=== PATIENT | male | born 1950 | race Caucasian/White ===

== ENCOUNTER 2018-09-28 06:24 | Day surgery (SDC) | payer OTHER ==
[2018-09-24 11:23] LABS: Absolute Lymphocytes (CBC) 2.5 K/uL (0.7-4.9); Absolute Monocytes 0.7 K/uL (0.1-1.3); Absolute Neutrophil 5.9 K/uL (1.8-8.0); Basophils % 1.3 % (0-1.3); Eosinophils % 4.6 % (0-4.4); Lymphocytes % 25.7 % (15.3-44.8); MCH 31.3 pg (27.0-35.0); MPV 10.5 fL (7.6-11.3); Monocytes % 7.1 % (3.3-12.3); RBC Red Blood Cell Count 4.84 M/uL (4.33-5.43)
[2018-09-24 11:27] LABS: Protime INR 0.99
[2018-09-24 11:36] LABS: Potassium 4.2 mmol/L (3.5-5.1)
--- NOTE | 2018-09-24 12:51 | RAD REPORT ---
EXAM DESCRIPTION: Amarjit Harvey (2 Views)09/24/2018 11:02 am CLINICAL HISTORY: Coronary artery disease/preop cardiac catheterization COMPARISON: May 2018 FINDINGS: The lungs appear clear of acute infiltrate. The heart is normal size IMPRESSION: No acute abnormalities displayed
[2018-09-28] MEDS ORDERED: HEPA 1000U/500MLS 1,000 UNIT/500 ML BAG IV ONE (06:46)
[2018-09-28] MEDS ORDERED: LIDOCAINE 1% MPF 30 ML VIAL ONE (06:46)
[2018-09-28] MEDS ORDERED: NA CHLORIDE 0.9% 500 ML ONE (06:55)
[2018-09-28] MEDS ORDERED: FENTANYL CITR 100 MCG/2 ML ONE (07:05)
[2018-09-28] MEDS ORDERED: MIDAZOLAM HCL 2 MG/2 ML INJ ONE ×2 (07:05→07:46)
[2018-09-28] MEDS ORDERED: NA CHLORIDE 0.9% 0 ML ONE (07:06)
[2018-09-28] MEDS ORDERED: ATROPINE SULF 1 MG/10 ML SYR IV ONE (07:06)
[2018-09-28] MEDS ORDERED: ACETYLCYST 20% 800 MG/4 ML VIAL PO ONE (08:15)
--- NOTE | 2018-09-28 12:37 | OP ---
Surgeon: Christiano Armstrong MD [employer] Operator: Minda Gill. Admitted to my service as an outpatient for a heart catheterization. Indication: Abnormal stress test. The patient is 67. He is a patient of Dr. Juan M Gay. Had a his tory of hypertension, dyslipidemia, intolerant to statin, positive stress test, brought to the cath l ab as an outpatient. He was prepped and draped in the routine sterile fashion. Given 2 mg of Versed for IV sedation. Creatinine is 1.4. A 6-[place] sheath introduced in the right common femoral arter y. Angiography there showed mild plaquing in the external iliac artery, but no focal stenosis. Loli o-Seal was used to close the case. A 6-[place] catheters of Bryan were used to do the left and righ t coronary injection respectively. He was found to have mild to moderate plaquing in the proximal LA D without any focal stenosis. The circumflex was normal. He was very left dominant. The RCA was fr ee of disease and was small, nondominant. The plan is for medical therapy for mild CAD. Total consc ious sedation was 30 minutes. Complications: None. Blood Loss: 5 cc. Disposition: The patient will be going home today after 2 hours of bedrest, and he will see me in e office in the next 2 weeks. ANTHONY/JOSEFINA Voice ID: [id number] Report ID: [id number]
== END 2018-09-28 10:00 | disposition home health service (06) ==
LOC: CCL 06:24
DX: I25.10 Atherosclerotic heart disease of native coronary artery without angina pectoris (principal); I10 Essential (primary) hypertension; K21.9 Gastro-esophageal reflux disease without esophagitis; F17.210 Nicotine dependence, cigarettes, uncomplicated; Z82.49 Family history of ischemic heart disease and other diseases of the circulatory system
CPT/HCPCS: 36415; 71046; 80048; 85025; 85610; 85730; 93454; C1760; C1893; J2250 ×2; J3010; J0583

== ENCOUNTER 2020-12-12 17:14 | Observation (INO) | payer OTHER ==
--- NOTE | 2020-12-12 17:48 | RAD REPORT ---
EXAM DESCRIPTION: CT - Ct Stroke Brain Wo Cont - 12/12/2020 5:36 pm CLINICAL HISTORY: DIZZINESS Headache, CVA COMPARISON: HEAD BRAIN W O CONTRAST dated 10/10/2011 TECHNIQUE: All CT scans are performed using dose optimization technique as appropriate and may inclu de automated exposure control or mA/KV adjustment according to patient size. FINDINGS: No intracranial hemorrhage, hydrocephalus or extra-axial fluid collection.Small right-side d old lacunar infarcts. 16 mm area of diminished density in the left frontal region of the basal gang dominic could be subacute infarct. No areas of brain edema or evidence of midline shift. The paranasal sinuses and mastoids are clear. The calvarium is intact. IMPRESSION: No acute intracranial abnormality. Possible subacute infarct measuring 16 mm left anter ior basal ganglia. The findings were discussed with Dr. Haynes On 12-12-20 at 5:42 pm by telephone.
--- NOTE | 2020-12-12 17:53 | RAD REPORT ---
EXAM DESCRIPTION: RAD - Chest Single View - 12/12/2020 5:47 pm CLINICAL HISTORY: stroke protocol Chest pain. COMPARISON: Chest Pa And Lat (2 Views) dated 01/24/2020; Chest Pa And Lat (2 Views) dated 09/24/2018; C hest Pa And Lat (2 Views) dated 06/01/2018; CHEST PA AND LAT 2 VIEW dated 08/15/2013 FINDINGS: Portable technique limits examination quality. The lungs are grossly clear. The heart is normal in size. No displaced fractures. IMPRESSION: No acute intrathoracic process suspected.
[2020-12-12 17:56] LABS: Absolute Lymphocytes (CBC) 2.3 K/uL (0.7-4.9); Basophils % 0.8 % (0-1.3); Hematocrit 39.1 % (39.6-49.0); Lymphocytes % 27.2 % (15.3-44.8); MPV 10.2 fL (7.6-11.3); RBC Red Blood Cell Count 4.37 M/uL (4.33-5.43)
[2020-12-12 18:01] LABS: Protime INR 1.03
[2020-12-12 18:07] LABS: BUN Blood Urea Nitrogen 27 mg/dL (7-18); Bicarbonate 28 mmol/L (21-32); Glucose Level 143 mg/dL (74-106); Potassium 3.7 mmol/L (3.5-5.1); Sodium Level 141 mmol/L (136-145); Troponin (Emerg Dept Use Only) < 0.02 ng/mL (0.0-0.045)
[2020-12-12] MEDS ORDERED: ASPIRIN 81 MG CHEWABLE TABLET ONE (18:32)
[2020-12-12] MEDS ORDERED: FOLIC ACID 5 MG/ML VIAL ONE (18:33)
[2020-12-12] MEDS ORDERED: NA CHLORIDE 0.9% 1,000 ML ONE (18:33)
--- NOTE | 2020-12-12 18:58 | ER ---
Nurse's Notes [facility] Name: Latrell Ramires Age: 70 yrs Sex: Male : 1950 Arrival Date: 12/12/2020 Time: 17:15 Bed 17 Private MD: Juan M Gay T Diagnosis: Cerebral infarction Presentation: 12/12 17:26 Chief complaint: Patient states: Slurred speech, lethargic, slow to respond to ll1 questions, chills, left leg not moving right noticed yesterday. Came on again today at noon per . Mixing up answers to questions during triage. Gait steady. Coronavirus screen: Client denies travel out of the [place] in the last 14 days. At this time, the client does not indicate any symptoms associated with coronavirus-19. Ebola Screen: Patient denies travel to an Ebola-affected area in the 21 days before illness onset. An acute neurological deficit is present. The charge nurse has been notified. Initial Sepsis Screen: Does the patient meet any 2 criteria? No. Patient's initial sepsis screen is negative. Does the patient have a suspected source of infection? No. Patient's initial sepsis screen is negative. Risk Assessment: Do you want to hurt yourself or someone else? Patient reports no desire to harm self or others. Onset of symptoms was December 11, 2020. 17:26 Method Of Arrival: Ambulatory ll1 17:26 Acuity: ALPHONSE 2 ll1 Stroke Activation: Symtpom onset >3 hours and < 6 hours Physician: Stroke Attending; Name: ; Notified At: ; Arrived At: Physician: Chief Stroke Resident; Name: ; Notified At: ; Arrived At: Physician: Stroke Resident; Name: ; Notified At: ; Arrived At: Physician: ED Attending; Name: Mercedes Haynes; Notified At: ; Arrived At: Physician: ED Resident; Name: ; Notified At: ; Arrived At: 17:26 stroke alert called. ll1 Historical: - Allergies: 17:29 No Known Allergies; ll1 - PMHx: 17:29 Hypertension; stroke; ll1 - Immunization history:: Flu vaccine is not up to date. - Social history:: Smoking status: Patient reports the use of cigarette tobacco products, smokes one pack cigarettes per day. Screenin:38 Abuse screen: Denies threats or abuse. Nutritional screening: No deficits noted. em Tuberculosis screening: No symptoms or risk factors identified. Fall Risk None identified. Assessment: 17:38 Reassessment: wheeled to CT by me. em 17:40 VAN Scoring: Arm Drift: Patients demonstrates NO arm weakness. Patient is VAN Negative. em Patient has been NPO before screening. The patient is alert, and able to follow commands. The patient does not exhibit slurred or garbled speech. The patient is not exhibiting difficulty speaking. The patient does not exhibit difficulty understanding words. The patient is able to swallow own secretions with no drooling or need for suction. Patient tolerated one teaspoon of water. No drooling, immediate coughing, gurgling, or clearing of the throat was noted. The patient tolerated 90mL of water. No drooling, immediate coughing, gurgling, or clearing of the throat was noted. The patient passed the bedside swallow screening. Oral medications may be given as ordered. Contact Physician for further diet orders. Provider notified of bedside swallow screening results: Jimi COHEN. T-PA (Activase) Screening: Contraindications: Patient reports onset of signs and symptoms of stroke greater than 6 hours ago: Yes. 17:40 General: Appears in no apparent distress. comfortable, Behavior is calm, cooperative, em appropriate for age. Pain: Denies pain. 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 Speech is normal, Facial symmetry appears normal, Reports weakness in left arm and left leg. 19:30 General: Appears in no apparent distress. comfortable, Behavior is calm, cooperative, rr5 appropriate for age. 19:30 Reassessment: Patient appears in no apparent distress at this time. Patient is alert, rr5 oriented x 3, equal unlabored respirations, skin warm/dry/pink. Neuro: Level of Consciousness is awake, alert, obeys commands, Oriented to person, place, time, situation. Cardiovascular: Capillary refill < 3 seconds Patient's skin is warm and dry. Respiratory: Airway is patent Respiratory effort is even, unlabored, Respiratory pattern is regular, symmetrical. GI: No signs and/or symptoms were reported involving the gastrointestinal system. : No signs and/or symptoms were reported regarding the genitourinary system. EENT: No signs and/or symptoms were reported regarding the EENT system. Derm: Skin is intact, is healthy with good turgor, Skin temperature is warm. Musculoskeletal: Circulation, motion, and sensation intact. Capillary refill < 3 seconds. 20:10 Reassessment: No changes from previously documented assessment. Patient is alert, rr5 oriented x 3, equal unlabored respirations, skin warm/dry/pink. hospitalist at bedside assessing the patient. 21:10 Reassessment: Patient appears in no apparent distress at this time. Patient is alert, rr5 oriented x 3, equal unlabored respirations, skin warm/dry/pink. 21:35 Reassessment: patient wants to smoke outside explained to patient not allowed and the rr5 explained to him. he insisted going out. goes with the patient outside and encouraged him to come back to the room. 21:40 Reassessment: patient went back to his room. rr5 21:57 Reassessment: Patient appears in no apparent distress at this time. Patient is alert, rr5 oriented x 3, equal unlabored respirations, skin warm/dry/pink. Patient states feeling better. Patient states symptoms have improved. Vital Signs: 17:26 BP 160 / 67; Pulse 60; Resp 18; Temp 98.1; Pulse Ox 99% ; Weight 99.79 kg; Height 6 ft. ll1 1 in. (185.42 cm); Pain 0/10; 18:13 BP 161 / 67; Pulse 56; Resp 18; Pulse Ox 98% on R/A; em 19:33 BP 165 / 85; Pulse 48; Resp 17; Temp 98; Pulse Ox 99% ; rr5 20:30 BP 159 / 85; Pulse 49; Resp 16; Pulse Ox 98% on R/A; rr5 21:35 BP 160 / 74; Pulse 51; Resp 17; Temp 98.2; Pulse Ox 98% on R/A; rr5 17:26 Body Mass Index 29.03 (99.79 kg, 185.42 cm) ll1 [place] Coma Score: 19:33 Eye Response: spontaneous(4). Verbal Response: oriented(5). Motor Response: obeys rr5 commands(6). Total: 15. 20:30 Eye Response: spontaneous(4). Verbal Response: oriented(5). Motor Response: obeys rr5 commands(6). Total: 15. 21:35 Eye Response: spontaneous(4). Verbal Response: oriented(5). Motor Response: obeys rr5 commands(6). Total: 15. NIH Stroke Scale Scores: 17:40 NIHSS Score: 0 em 17:50 NIHSS Score: 1 cp ED Course: 17:15 Patient arrived in ED. mr 17:16 Juan M Gay MD is Private Physician. mr 17:28 Triage completed. ll1 17:29 Arm band placed on Patient placed in an exam room, on a stretcher. ll1 17:29 Notified ED physician of other stroke-like syptoms. ll1 17:30 Inserted saline lock: 20 gauge in right antecubital area, using aseptic technique. jp3 Blood collected. 17:30 Initial lab(s) drawn, by me, sent to lab. T\T\S collected, blood band applied to patient. jp3 Patient maintains SpO2 saturation greater than 95% on room air. 17:33 Kael Huertas, RN is Primary Nurse. em 17:34 Sher aHynes MD is Attending Physician. rn 17:34 Jimi Valdes PA is PHCP. cp 17:36 CT Stroke Brain w/o Contrast In Process Unspecified. EDMS 17:40 Patient has correct armband on for positive identification. Call light in reach. Side em rails up X2. Adult w/ patient. Pulse ox on. NIBP on. 17:48 Stroke CXR 1 View In Process Unspecified. EDMS 18:57 Mauro Dumont DO is Hospitalizing Provider. cp 19:33 COVID swab sent to lab. rr5 21:57 No provider procedures requiring assistance completed. Patient admitted, IV remains in rr5 place. intact, No redness/swelling at site. Administered Medications: 18:22 Drug: Aspirin Chewable Tablet 324 mg Route: PO; em 18:42 Follow up: Response: No adverse reaction em 18:22 Drug: foLIC Acid 1 mg Route: IVPB; Site: right antecubital; em 18:42 Follow up: Response: No adverse reaction; IV Status: Completed infusion em 18:22 Drug: NS 0.9% 1000 ml Route: IV; Rate: 1 bolus; Site: right antecubital; em 20:00 Follow up: Response: No adverse reaction; IV Status: Completed infusion; IV Intake: rr5 1000ml 19:22 Drug: PlaVIX 300 mg Route: PO; rr5 20:20 Follow up: Response: No adverse reaction rr5 Intake: 20:00 IV: 1000ml; Total: 1000ml. rr5 Outcome: 18:57 Decision to Hospitalize by Provider. cp 21:57 Admitted to Med/surg accompanied by nurse, via wheelchair, room 209, with chart, Report rr5 called to chantel 21:57 Condition: stable 21:57 Instructed on the need for admit. 22:24 Patient left the ED. rr5 NIH Stroke Scale - NIH Stroke Score Date: 12/12/2020 Time: 17:40 Total Score = 0 1a. Level of Consciousness (LOC) - 0(Alert) 1b. Level of Consciousness (LOC) (Year \T\ Age) - 0(Both) 1c. LOC Commands (Open \T\ Closes Eyes/Distribution Estimator) - 0(Both) 2. Best Gaze (Lateral Gaze Paresis) - 0(Normal) 3. Visual Field Loss - 0(No visual loss) 4. Facial Palsy - 0(Normal) 5a. Left Arm: Motor (10-second hold) - 0(No drift) 5b. Right Arm: Motor (10-second hold) - 0(No drift) 6a. Left Leg: Motor (5-second hold - always test supine) - 0(No drift) 6b. Right Leg: Motor (5-second hold - always test supine) - 0(No drift) 7. Limb Ataxia (finger/nose \T\ heel/[place] - test with eyes open) - 0(Absent) 8. Sensory Loss (pinprick arms/legs/face) - 0(Normal) 9. Best Language: Aphasia (description/naming/reading) - 0(No aphasia) 10. Dysarthria (speech clarity - read or repeat words) - 0(Normal) 11. Extinction and Inattention (visual/tactile/auditory/spatial/personal) - 0(No abnormality) Initials: em NIH Stroke Scale - NIH Stroke Score Date: 12/12/2020 Time: 17:50 Total Score = 1 1a. Level of Consciousness (LOC) - 0(Alert) 1b. Level of Consciousness (LOC) (Year \T\ Age) - 0(Both) 1c. LOC Commands (Open \T\ Closes Eyes/Distribution Estimator) - 0(Both) 2. Best Gaze (Lateral Gaze Paresis) - 0(Normal) 3. Visual Field Loss - 0(No visual loss) 4. Facial Palsy - 0(Normal) 5a. Left Arm: Motor (10-second hold) - 0(No drift) 5b. Right Arm: Motor (10-second hold) - 0(No drift) 6a. Left Leg: Motor (5-second hold - always test supine) - 0(No drift) 6b. Right Leg: Motor (5-second hold - always test supine) - 0(No drift) 7. Limb Ataxia (finger/nose \T\ heel/[place] - test with eyes open) - 0(Absent) 8. Sensory Loss (pinprick arms/legs/face) - 1(Mild to moderate loss) 9. Best Language: Aphasia (description/naming/reading) - 0(No aphasia) 10. Dysarthria (speech clarity - read or repeat words) - 0(Normal) 11. Extinction and Inattention (visual/tactile/auditory/spatial/personal) - 0(No abnormality) Initials: cp Signatures: Dispatcher [employer] Latanya Fernandez Edgar, RN RN Sher Martinez MD MD rn Page, Corey, PA PA cp [place]rett Angela jp3 Bernabe Urbano RN RN rr5 Jaimee Morrison RN RN ll1
--- NOTE | 2020-12-12 18:58 | EDPHYS ---
Physician Documentation [facility] Name: Latrell Ramires Age: 70 yrs Sex: Male : 1950 Arrival Date: 12/12/2020 Time: 17:15 Bed 17 Private MD: Juan M Gay T ED Physician Sher Haynes HPI: 12/12 17:45 This 70 yrs old Male presents to ER via Ambulatory with complaints of S/S of cp Possible Stroke. 17:45 The patient's problem is reported as paresthesias, in left upper extremity, in left cp lower extremity, in left side of face, weakness, in the left upper extremity, in the left lower extremity. Onset: The symptoms/episode began/occurred last night. Duration: The episode is continuous. 17:45 Associated signs and symptoms: Pertinent negatives: abdominal pain, chest pain, cp combativeness, confusion, palpitations. Patient's baseline: Neuro: alert and fully oriented, Motor: no deficits, Ambulation: walks without assistance, Speech: normal, The patient has a previous history of CVA. 17:45 Severity of symptoms: in the emergency department the symptoms are unchanged. cp Historical: - Allergies: 17:29 No Known Allergies; ll1 - PMHx: 17:29 Hypertension; stroke; ll1 - Immunization history:: Flu vaccine is not up to date. - Social history:: Smoking status: Patient reports the use of cigarette tobacco products, smokes one pack cigarettes per day. ROS: 17:50 Constitutional: Negative for body aches, chills, fever, poor PO intake. cp 17:50 Eyes: Negative for injury, pain, redness, and discharge. cp 17:50 ENT: Negative for ear pain, sore throat, difficulty swallowing, difficulty handling secretions. 17:50 Cardiovascular: Negative for chest pain, edema, palpitations. 17:50 Respiratory: Negative for cough, shortness of breath, wheezing. 17:50 Abdomen/GI: Negative for abdominal pain, nausea, vomiting, and diarrhea. 17:50 Neuro: Positive for numbness, of the face, left arm and left leg, weakness of left arm and left leg, Negative for altered mental status, dizziness, headache, syncope. 17:50 All other systems are negative. Exam: 17:50 Head/Face: Normocephalic, atraumatic. cp 17:50 Constitutional: The patient appears in no acute distress, alert, awake, non-diaphoretic, non-toxic, well developed, well nourished. 17:50 Eyes: Periorbital structures: appear normal, Pupils: equal, round, and reactive to light and accomodation, Extraocular movements: intact throughout, Conjunctiva: normal, no exudate, no injection, Sclera: no appreciated abnormality, Lids and lashes: appear normal, bilaterally. 17:50 ENT: External ear(s): are unremarkable, Nose: is normal, Mouth: Lips: moist, Oral mucosa: pink and intact, moist, Posterior pharynx: Airway: no evidence of obstruction, patent, swelling, is not appreciated, erythema, is not appreciated, exudate, is not appreciated. 17:50 Neck: ROM/movement: is normal, is supple, without pain, no range of motions limitations, no nuchal rigidity. 17:50 Chest/axilla: Inspection: normal, Palpation: is normal, no crepitus, no tenderness. 17:50 Cardiovascular: Rate: normal, Rhythm: regular, Heart sounds: murmur, not appreciated, Edema: is not appreciated, JVD: is not appreciated. 17:50 Respiratory: the patient does not display signs of respiratory distress, Respirations: cp normal, no use of accessory muscles, no retractions, labored breathing, is not present, Breath sounds: are clear throughout, no decreased breath sounds, no stridor, no wheezing. 17:50 Abdomen/GI: Inspection: abdomen appears normal, Palpation: abdomen is soft and cp non-tender, in all quadrants. 17:50 Back: pain, is absent, ROM is normal. 17:50 Skin: no rash present. 17:50 Neuro: Orientation: to person, place \T\ time. Mentation: is normal, Cerebellar function: is grossly normal, Motor: moves all fours, Sensation: light touch is decreased in the left arm and left leg. 18:00 Radiologist reports: area of infarct left anterior basal ganglia cp Vital Signs: 17:26 BP 160 / 67; Pulse 60; Resp 18; Temp 98.1; Pulse Ox 99% ; Weight 99.79 kg; Height 6 ft. ll1 1 in. (185.42 cm); Pain 0/10; 18:13 BP 161 / 67; Pulse 56; Resp 18; Pulse Ox 98% on R/A; em 19:33 BP 165 / 85; Pulse 48; Resp 17; Temp 98; Pulse Ox 99% ; rr5 20:30 BP 159 / 85; Pulse 49; Resp 16; Pulse Ox 98% on R/A; rr5 21:35 BP 160 / 74; Pulse 51; Resp 17; Temp 98.2; Pulse Ox 98% on R/A; rr5 17:26 Body Mass Index 29.03 (99.79 kg, 185.42 cm) ll1 NIH Stroke Scale Scores: 17:40 NIHSS Score: 0 em 17:50 NIHSS Score: 1 cp Jewel Coma Score: 19:33 Eye Response: spontaneous(4). Verbal Response: oriented(5). Motor Response: obeys rr5 commands(6). Total: 15. 20:30 Eye Response: spontaneous(4). Verbal Response: oriented(5). Motor Response: obeys rr5 commands(6). Total: 15. 21:35 Eye Response: spontaneous(4). Verbal Response: oriented(5). Motor Response: obeys rr5 commands(6). Total: 15. MDM: 17:34 Patient medically screened. rn 17:47 ED course: Dr. Flood called, CT head no acute findings, possible subacute lesion left rn frontal lobe.. 18:14 Physician consultation: Efren Strauss MD was called at 18:14, left message on voicemail. 18:45 Physician consultation: Efren Strauss MD was called at 18:45, was contacted at 18:45, cp regarding consult, patient's condition. 18:55 Data reviewed: vital signs, nurses notes, lab test result(s), EKG, radiologic studies, cp CT scan, plain films, and as a result, I will admit patient. 18:55 Physician consultation: Parish ALTAMIRANO was contacted at 18:50, regarding admission, cp to the telemetry unit. patient's condition. 12/12 17:32 Order name: Basic Metabolic Panel; Complete Time: 18:12 em 12/12 18:12 Interpretation: Normal except: CL 108; GLUC 143; BUN 27; CRE 1.85; GFR 36. cp 12/12 17:32 Order name: CBC with Diff; Complete Time: 18:05 em 12/12 17:32 Order name: Protime (+inr); Complete Time: 18:05 em 12/12 17:32 Order name: Ptt, Activated; Complete Time: 18:05 em 12/12 17:33 Order name: Troponin (emerg Dept Use Only); Complete Time: 18:12 rn 12/12 17:32 Order name: CT Stroke Brain w/o Contrast; Complete Time: 17:51 em 12/12 17:32 Order name: Stroke CXR 1 View; Complete Time: 17:57 em 12/12 17:42 Order name: Glucose, Ancillary Testing; Complete Time: 17:51 EDMS 12/12 20:23 Order name: SARS-COV-2 RT PCR; Complete Time: 21:44 EDMS 12/12 17:32 Order name: EKG; Complete Time: 17:33 em 12/12 17:33 Order name: EKG; Complete Time: 17:34 rn 12/12 17:33 Order name: Accucheck; Complete Time: 17:42 rn 12/12 17:33 Order name: Cardiac monitoring; Complete Time: 17:42 rn 12/12 17:33 Order name: EKG - Nurse/Tech; Complete Time: 18:43 rn 12/12 17:33 Order name: IV Saline Lock; Complete Time: 17:45 rn 12/12 17:33 Order name: Labs collected and sent; Complete Time: 17:42 rn 12/12 17:33 Order name: NPO; Complete Time: 17:42 rn 12/12 17:33 Order name: O2 Per Protocol; Complete Time: 17:42 rn 12/12 17:33 Order name: O2 Sat Monitoring; Complete Time: 17:42 rn 12/12 17:33 Order name: Stroke Swallow Screen; Complete Time: 18:43 rn Administered Medications: 18:22 Drug: Aspirin Chewable Tablet 324 mg Route: PO; em 18:42 Follow up: Response: No adverse reaction em 18:22 Drug: foLIC Acid 1 mg Route: IVPB; Site: right antecubital; em 18:42 Follow up: Response: No adverse reaction; IV Status: Completed infusion em 18:22 Drug: NS 0.9% 1000 ml Route: IV; Rate: 1 bolus; Site: right antecubital; em 20:00 Follow up: Response: No adverse reaction; IV Status: Completed infusion; IV Intake: rr5 1000ml 19:22 Drug: PlaVIX 300 mg Route: PO; rr5 20:20 Follow up: Response: No adverse reaction rr5 Disposition: 12/12/20 18:57 Hospitalization ordered by Mauro Dumont for Inpatient Admission. Preliminary diagnosis is Cerebral infarction. - Bed requested for Telemetry/MedSurg (Inpatient). - Status is Inpatient Admission. rr5 - Condition is Stable. - Problem is new. - Symptoms have improved. NIH Stroke Scale - NIH Stroke Score Date: 12/12/2020 Time: 17:40 Total Score = 0 1a. Level of Consciousness (LOC) - 0(Alert) 1b. Level of Consciousness (LOC) (Year \T\ Age) - 0(Both) 1c. LOC Commands (Open \T\ Closes Eyes/Respooler) - 0(Both) 2. Best Gaze (Lateral Gaze Paresis) - 0(Normal) 3. Visual Field Loss - 0(No visual loss) 4. Facial Palsy - 0(Normal) 5a. Left Arm: Motor (10-second hold) - 0(No drift) 5b. Right Arm: Motor (10-second hold) - 0(No drift) 6a. Left Leg: Motor (5-second hold - always test supine) - 0(No drift) 6b. Right Leg: Motor (5-second hold - always test supine) - 0(No drift) 7. Limb Ataxia (finger/nose \T\ heel/[place] - test with eyes open) - 0(Absent) 8. Sensory Loss (pinprick arms/legs/face) - 0(Normal) 9. Best Language: Aphasia (description/naming/reading) - 0(No aphasia) 10. Dysarthria (speech clarity - read or repeat words) - 0(Normal) 11. Extinction and Inattention (visual/tactile/auditory/spatial/personal) - 0(No abnormality) Initials: em NIH Stroke Scale - NIH Stroke Score Date: 12/12/2020 Time: 17:50 Total Score = 1 1a. Level of Consciousness (LOC) - 0(Alert) 1b. Level of Consciousness (LOC) (Year \T\ Age) - 0(Both) 1c. LOC Commands (Open \T\ Closes Eyes/Respooler) - 0(Both) 2. Best Gaze (Lateral Gaze Paresis) - 0(Normal) 3. Visual Field Loss - 0(No visual loss) 4. Facial Palsy - 0(Normal) 5a. Left Arm: Motor (10-second hold) - 0(No drift) 5b. Right Arm: Motor (10-second hold) - 0(No drift) 6a. Left Leg: Motor (5-second hold - always test supine) - 0(No drift) 6b. Right Leg: Motor (5-second hold - always test supine) - 0(No drift) 7. Limb Ataxia (finger/nose \T\ heel/washington - test with eyes open) - 0(Absent) 8. Sensory Loss (pinprick arms/legs/face) - 1(Mild to moderate loss) 9. Best Language: Aphasia (description/naming/reading) - 0(No aphasia) 10. Dysarthria (speech clarity - read or repeat words) - 0(Normal) 11. Extinction and Inattention (visual/tactile/auditory/spatial/personal) - 0(No abnormality) Initials: cp Addendum: 12/15/2020 10:07 Co-signature as Attending Physician, Sher Haynes MD. rn Signatures: Dispatcher [employer] [facility] Marisela Greenfield, RN Kael Zamora, RN RN Sher Martinez MD MD rn Parish Del Real, GUEST SERVICE AIDE-C GUEST SERVICE AIDE-Cla1 Jimi Valdes PA PA cp Bernabe Urbano, RN RN rr5 Jaimee Morrison RN RN ll1 Corrections: (The following items were deleted from the chart) 12/12 17:35 17:34 Chest Single View+RAD.RAD.BRZ ordered. EDUT EDUT 17:36 17:34 CT-STROKE BRAIN W/O CONTRAST+CT.RAD.BRZ ordered. EDUT EDUT 17:41 17:32 Accucheck ordered. em jp3 17:42 17:32 Oxygen Per Protocol ordered. em jp3 17:42 17:32 O2 Sat Monitoring ordered. em jp3 17:43 17:32 Cardiac monitoring ordered. em jp3 17:43 17:32 EKG - Nurse/Tech ordered. em jp3 17:43 17:32 IV Saline Lock ordered. em jp3 17:44 17:32 Labs collected and sent ordered. em jp3 17:44 17:32 NPO ordered. em jp3 17:45 17:32 Stroke Swallow Screen ordered. em em 18:17 18:06 Head Angio+CT.RAD.BRZ ordered. EDMS EDMS 18:17 18:06 Neck Angio+CT.RAD.BRZ ordered. EDMS EDMS 19:35 19:14 CORONAVIRUS+MR.LAB.BRZ ordered. EDMS EDMS 20:07 17:33 BASIC METABOLIC PANEL+C.LAB.BRZ ordered. EDMS EDMS 20:07 17:33 CBC+H.LAB.BRZ ordered. EDMS EDMS 20:07 17:33 PROTIME (+INR)+COAG.LAB.BRZ ordered. EDMS EDMS 20:07 17:34 PTT, ACTIVATED+COAG.LAB.BRZ ordered. EDUT EDMS 21:34 18:57 Hospitalization Ordered by Mauro Dumont DO for Inpatient Admission. dw Preliminary diagnosis is Cerebral infarction. Bed requested for Telemetry/MedSurg (Inpatient). Status is Inpatient Admission. Condition is Stable. Problem is new. Symptoms have improved. cp 22:24 21:34 12/12/2020 18:57 Hospitalization Ordered by Mauro Dumont DO for rr5 Inpatient Admission. Preliminary diagnosis is Cerebral infarction. Bed requested for Telemetry/MedSurg (Inpatient). Status is Inpatient Admission. Condition is Stable. Problem is new. Symptoms have improved. dw
[2020-12-12] MEDS ORDERED: CLOPIDOGREL 75 MG TABLET ONE (19:30)
--- NOTE | 2020-12-12 20:55 | P.HP ---
Certification for Inpatient Patient admitted to: Observation With expected LOS: <2 Midnights Patient will require the following post-hospital care: None Practitioner: I am a practitioner with admitting privileges, knowledge of patient current condition, hospital course, and medical plan of care. Services: Services provided to patient in accordance with Admission requirements found in Title 42 Section 412.3 of the Code of Federal Regulations Patient History Date of Service: 12/12/20 Primary Care Provider: Dr. Gay Reason for admission: CVA History of Present Illness: 70-year-old male with history of hypertension and CVA presents to the emergency department for stroke-like symptoms. Patient reports the symptoms b jim yesterday afternoon when he is having some numbness/tingling of the left upper and lower extremity. Patient had difficulty sleeping last night, 2 days noticed that he was having some difficulty with his speech intermittently in addition to noticing left-sided facial droop at 1 point for short period time. Patient was worked up in the emergency department CBC unremarkable chemistry significant for mildly elevated creatinine 1.85 GFR [address] scan shows possible subacute infarct measuring 16 mm left anterior basal ganglia. Case was discussed with neurology who recommends admission with medical management. Patient was taking daily aspirin, will add Plavix, folic acid, statin therapy. Allergies No Known Allergies Allergy (Verified 09/24/18 10:35) Home Medications: Finasteride [Proscar] 5 mg PO DAILY 11/14/15 Glucosamine/Chondr Mcgee A Sod [Osteo Bi-Flex Caplet] 1 each PO BID 11/14/15 Omeprazole [Prilosec] 20 mg PO DAILY 11/14/15 Tamsulosin [Flomax] 0.4 mg PO BEDTIME 11/14/15 Valsartan/Hydrochlorothiazide [Valsartan-Hctz 320-12.5 mg Tab] 1 each PO DAILY AFTER SUPPER 11/14/15 - Past Medical/Surgical History -: Hypertension -: CVA -: hernia -: prostate Psychosocial/ Personal History: Retired, lives with - Social History Smoking Status: Current every day smoker Counseled patient to stop smoking for: less than 10 minutes Smoking therapy provided: Yes Caffeine use: Yes Place of Residence: Home Review of Systems 10-point ROS is otherwise unremarkable Neurological: As per HPI Physical Examination - Physical Exam General: Alert, In no apparent distress HEENT: Atraumatic, PERRLA, Mucous membr. moist/pink Neck: Supple, 2+ carotid pulse no bruit, No LAD Respiratory: Clear to auscultation bilaterally, Normal air movement Cardiovascular: Regular rate/rhythm, Normal S1 S2 Gastrointestinal: Normal bowel sounds, No tenderness Musculoskeletal: No tenderness Integumentary: No rashes Neurological: Normal speech, Normal strength at 5/5 x4 extr, Normal tone, Normal affect - Studies Laboratory Data (last 24 hrs) 12/12/20 17:33: PT Cancelled, INR Cancelled, APTT Cancelled 12/12/20 17:33: WBC Cancelled, Hgb Cancelled, Hct Cancelled, Plt Count Cancelled 12/12/20 17:33: Sodium Cancelled, Potassium Cancelled, BUN Cancelled, Creatinine Cancelled, Glucose Cancelled 12/12/20 17:30: PT 12.1, INR 1.03, APTT 26.8 12/12/20 17:30: WBC 8.6, Hgb 13.1 L, Hct 39.1 L, Plt Count 275 12/12/20 17:30: Sodium 141, Potassium 3.7, BUN 27 H, Creatinine 1.85 H, Glucose 143 H Assessment and Plan - Plan Assessment Subacute CVA HTN Tobacco abuse Plan Subacute CVA: MRI in the morning, carotid ultrasound, neurology consult in place. ASA, plavix, folic acid, lovenox. Q4H neurochecks, speech/PT consults. HTN: allow for permissive HTN at this time, review home meds. Tobacco abuse: Provide with nicotine patch, encourage cessation. Discharge Plan: Home Plan to discharge in: 24 Hours - Advance Directives Does patient have a Living Will: No Does patient have a Durable POA for Healthcare: No - Code Status/Comfort Care Code Status Assessed: Yes (full code) Critical Care: No Time Spent Managing Pts Care (In Minutes): 55
[2020-12-12] MEDS ORDERED: NICOTINE 21 MG/PAT TD PRN (21:55)
[2020-12-12] MEDS ORDERED: ATORVASTATIN 40 MG TAB PO SCH (21:55)
[2020-12-12] MEDS ORDERED: ACETAMINOPHEN 500 MG TAB PO PRN (21:55)
[2020-12-12] MEDS ORDERED: ONDANSETRON 4 MG/2 ML VIAL IV PRN (21:55)
[2020-12-12] MEDS ORDERED: POTASSIUM CL SA 10 MEQ TAB PO ONE (22:31)
[2020-12-12] MEDS: NA CHLORIDE 0.9% 1,000 ML IV SCH (22:45)
[2020-12-13 02:11] VITALS: BMI 28.3
[2020-12-13 05:46] LABS: Absolute Lymphocytes (CBC) 2.2 K/uL (0.7-4.9); Basophils % 0.7 % (0-1.3); Hematocrit 37.5 % (39.6-49.0); Lymphocytes % 27.5 % (15.3-44.8); MPV 10.3 fL (7.6-11.3); RBC Red Blood Cell Count 4.13 M/uL (4.33-5.43)
[2020-12-13 05:57] LABS: Magnesium 2.3 mg/dL (1.8-2.4); Potassium 4.2 mmol/L (3.5-5.1)
[2020-12-13 06:03] LABS: Thyroid Stimulating Hormone 3.95 uIU/mL (0.360-3.740)
[2020-12-13] MEDS ORDERED: PANTOPRAZOLE 40MG TABLET PO SCH (06:30)
[2020-12-13] MEDS ORDERED: FOLIC ACID 1 MG TABLET PO SCH (09:00)
[2020-12-13] MEDS ORDERED: CLOPIDOGREL 75 MG TABLET PO SCH (09:00)
[2020-12-13] MEDS ORDERED: ASPIRIN EC 81 MG TAB PO SCH (09:00)
[2020-12-13] MEDS ORDERED: ENOXAPARIN 40 MG/0.4 ML SQ SCH (09:00)
[2020-12-13] MEDS ORDERED: hydroCHLOROthiazide 12.5 MG CAP PO SCH (09:00)
[2020-12-13] MEDS ORDERED: VALSARTAN 160 MG TAB PO SCH (09:00)
--- NOTE | 2020-12-13 09:11 | RAD REPORT ---
EXAM DESCRIPTION: US - CP - 12/13/2020 7:54 am CLINICAL HISTORY: cva COMPARISON: Chest Single View dated 12/12/2020 TECHNIQUE: Real-time sonographic evaluation of bilateral carotid and vertebral systems was performed . Phillips scale and Doppler interrogation were performed with waveform tracing bilaterally. FINDINGS: Normal high resistance waveforms are noted in both external carotid arteries. The common c arotid arteries and internal carotid arteries show normal low resistance waveforms. Mild plaquing changes are present in the right carotid vasculature. Visually no significant degree of luminal narrowing identified. No suspicious right-side velocity value or suspicious waveform. No hem odynamically significant stenosis on the right. More prominent plaquing changes are present with evid ence of luminal narrowing. Peak systolic velocity on the left is elevated to 157 cm/second. Left-side d ICA/CCA ratio is 2.02 in value. Peak systolic and end diastolic velocity values and the ICA/CCA rat ios are in the non-hemodynamically significant range. Antegrade flow seen in both vertebral arteries. Velocity values and ratios were recorded and are retained in the patient's imaging records. IMPRESSION: Left greater than right atherosclerotic change with no dissection or emergent finding se en. Left-sided bulb/ ICA stenosis is estimated at 50-70% with no significant stenosis identified on the r ight.
--- NOTE | 2020-12-13 09:28 | RAD REPORT ---
EXAM DESCRIPTION: MRI - Brain Wo Cont - 12/13/2020 8:36 am CLINICAL HISTORY: cva COMPARISON: MR STROKE PROTOCOL dated 10/14/2011; Ct Stroke Brain Wo Cont dated 12/12/2020 TECHNIQUE: Sagittal T1-weighted images were obtained along with axial PD, heavily T2-weighted and T2 -FLAIR images. Axial DWI and ADC mapping sequences were also obtained along with coronal heavily T2-w eighted images. FINDINGS: Diffusion imaging shows a 2.5 centimeter area of abnormal signal in the deep periventricul ar white matter of the left frontal lobe extending inferiorly into the left lentiform nucleus. This h as corresponding diminished signal on ADC mapping. No other acute/subacute infarction changes identif iable. The area of infarction is hyperintense on T2/IR sequencing. Hyperintense round T2 foci in the right e xternal capsule region is probably a perivascular space. Hyperintense T2/hypointense T2 stir signal i n the lateral side of the right thalamus is probably an old ischemic injury. Atrophy changes are mini mal. Patient has very little chronic ischemic change in the cerebral white matter. There is no edema or shift of midline structures. No extra-axial fluid collections. Phillips-matter/whit e matter junction is preserved. Signal voids are seen as a normal finding in the major intracranial v essels. No globe or orbital content abnormality. No sella or supra sella mass. Mastoid air cells and paranasal sinuses are clear. IMPRESSION: Acute nonhemorrhagic infarction in the left lentiform nucleus extending into the deep pe riventricular white matter of the left frontal lobe.
[2020-12-13] MEDS: NA CHLORIDE 0.9% 1,000 ML IV SCH (09:37)
--- NOTE | 2020-12-13 13:56 | P.DS ---
Admission Date: 12/12/20 Discharge Date: 12/13/20 Primary Care Provider: Dr. Gay Disposition: ROUTINE DISCHARGE Discharge Condition: GOOD Reason for Admission: CVA Consultations: Neurology-Dr. Strauss Procedures: CT Brain: FINDINGS: No intracranial hemorrhage, hydrocephalus or extra-axial fluid collection.Small right-sided old lacunar infarcts. 16 mm area of diminished density in the left frontal region of the basal ganglia could be subacute infarct. No areas of brain edema or evidence of midline shift. The paranasal sinuses and mastoids are clear. The calvarium is intact. IMPRESSION: No acute intracranial abnormality. Possible subacute infarct measuring 16 mm left anterior basal ganglia. MRI Brain: FINDINGS: Diffusion imaging shows a 2.5 centimeter area of abnormal signal in the deep periventricular white matter of the left frontal lobe extending inferiorly into the left lentiform nucleus. This has corresponding diminished signal on ADC mapping. No other acute/subacute infarction changes identifiable. The area of infarction is hyperintense on T2/IR sequencing. Hyperintense round T2 foci in the right external capsule region is probably a perivascular space. Hyperintense T2/hypointense T2 stir signal in the lateral side of the right thalamus is probably an old ischemic injury. Atrophy changes are minimal. Patient has very little chronic ischemic change in the cerebral white matter. There is no edema or shift of midline structures. No extra-axial fluid collections. Phillips-matter/white matter junction is preserved. Signal voids are seen as a normal finding in the major intracranial vessels. No globe or orbital content abnormality. No sella or supra sella mass. Mastoid air cells and paranasal sinuses are clear. IMPRESSION: Acute nonhemorrhagic infarction in the left lentiform nucleus extending into the deep periventricular white matter of the left frontal lobe. Carotid doppler: FINDINGS: Normal high resistance waveforms are noted in both external carotid arteries. The common carotid arteries and internal carotid arteries show normal low resistance waveforms. Mild plaquing changes are present in the right carotid vasculature. Visually no significant degree of luminal narrowing identified. No suspicious right-side velocity value or suspicious waveform. No hemodynamically significant stenosis on the right. More prominent plaquing changes are present with evidence of luminal narrowing. Peak systolic velocity on the left is elevated to 157 cm/seco nd. Left-sided ICA/CCA ratio is 2.02 in value. Peak systolic and end diastolic velocity values and the ICA/CCA ratios are in the non-hemodynamically significant range. Antegrade flow seen in both vertebral arteries. Velocity values and ratios were recorded and are retained in the patient's imaging records. IMPRESSION: Left greater than right atherosclerotic change with no dissection or emergent finding seen. Left-sided bulb/ ICA stenosis is estimated at 50-70% with no significant stenosis identified on the right. 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 Patient presented with numbness to the left upper and lower extremity. Patient also had difficulty with speech. Patient was worked up in the emergency department CBC unremarkable chemistry significant for mildly elevated creatinine 1.85 GFR [address] scan shows possible subacute infarct measuring 16 mm left anterior basal ganglia. Patient was admitted for further evaluation and treatment. Hospital Course: Patient presented with Left upper and lower extremity paresthesia with expressive aphasia. Patient with prior history of CVA 10 years ago to the right lateral thalamus. The patient was evaluated and found to have acute nonhemorrhagic infarct in the left lentiform nucleus extending into the deep periventricular white matter of the left frontal lobe. Patient symptoms resolved. Patient now back to baseline neurology was consulted. Patient has worked with physical therapy moving around appropriately. No focal deficits noted at this time. Patient also has underlying carotid arterial disease bulb/internal carotid artery stenosis noted around 50-75%. At discharge patient will continue with aspirin 81 mg daily, Plavix 75 mg daily, Lipitor 40 mg daily, and folic acid mg daily. Neurology and I discussed with the patient about the plan of care including tobacco cessation. Compliance with medication will be enforced. Patient will follow up with neurology within 1 week to follow up this hospitalization. After 1 month neurology will consider discontinuing aspirin and continue with Plavix long-term. Compliance with medication addressed in detail. Education on CVA, tobacco cessation address in detail. Recommend to recheck lab-fasting lipid panel in 4-6 weeks to monitor his progress. Further adjustment in medication can be done by his PCP or neurology. Patient with hypertension. Blood pressure is elevated. Patient takes valsartan hydrochlorothiazide 320 mg/12.5 mg twice daily. Additional medication of Norvasc 5 mg daily added. Patient will need to maintain blood pressure around 160 systolic for the next week then will need better control. Further adjustment in his medication can be done by Neurology or his PCP. Goal Hypertension in the future will be 130/80. Education on hypertension provided. Patient appears to have chronic renal disease stage III. Renal function improved with hydration. Encourage oral intake. Future medications will need to be renally dose. Recommend to recheck lab-BMP in 1 week. Patient would benefit with nephrology evaluation as an outpatient to further evaluate. Current medications may need to be further adjusted by his PCP per renal function. Patient with tobacco abuse. Tobacco cessation addressed in detail. Will provide nicotine patch daily. Vital Signs/Physical Exam: Temp Pulse Resp BP Pulse Ox 97.2 F 52 16 188/80 H 98 12/13/20 08:00 12/13/20 09:36 12/13/20 08:00 12/13/20 09:36 12/13/20 08:00 General: Alert, In no apparent distress, Oriented x3, Cooperative HEENT: Atraumatic Neck: Supple Respiratory: Clear to auscultation bilaterally, Normal air movement Cardiovascular: Normal pulses, Regular rate/rhythm Gastrointestinal: Normal bowel sounds, No tenderness, No masses, No rebound, No guarding Integumentary: No tenderness/swelling, No erythema, No warmth, No cyanosis Neurological: Normal speech, Normal strength at 5/5 x4 extr, Normal tone, Normal affect Laboratory Data at Discharge: WBC 8.1 K/uL (4.3-10.9) 12/13/20 05:02 Hgb 12.1 g/dL (13.6-17.9) L 12/13/20 05:02 Hct 37.5 % (39.6-49.0) L 12/13/20 05:02 Plt Count 246 K/uL (152-406) 12/13/20 05:02 PT Cancelled 12/12/20 17:33 INR Cancelled 12/12/20 17:33 APTT Cancelled 12/12/20 17:33 Sodium 143 mmol/L (136-145) 12/13/20 05:02 Potassium 4.2 mmol/L (3.5-5.1) 12/13/20 05:02 BUN 26 mg/dL (7-18) H 12/13/20 05:02 Creatinine 1.59 mg/dL (0.55-1.3) H 12/13/20 05:02 Glucose 101 mg/dL (74-106) 12/13/20 05:02 Magnesium 2.3 mg/dL (1.8-2.4) 12/13/20 05:02 Triglycerides 174 mg/dL (<150) H 12/13/20 05:02 Cholesterol 148 mg/dL (<200) 12/13/20 05:02 HDL Cholesterol 28 mg/dL (40-60) L 12/13/20 05:02 Cholesterol/HDL Ratio 5.29 12/13/20 05:02 Home Medications: Omeprazole [Prilosec] 20 mg PO BID 11/14/15 Valsartan/Hydrochlorothiazide [Valsartan-Hctz 320-12.5 mg Tab] 1 each PO BID 11/14/15 Aspirin [Aspirin EC 81 MG] 1 tab PO DAILY 12/12/20 Amlodipine [Norvasc*] 5 mg PO DAILY #30 tab 12/13/20 Atorvastatin Calcium [Lipitor] 40 mg PO BEDTIME #30 tab 12/13/20 Clopidogrel Bisulfate [Plavix*] 75 mg PO DAILY #30 tablet 12/13/20 Folic Acid 1 mg PO DAILY #30 tablet 12/13/20 Nicotine [Nicoderm*] 21 mg TD DAILY PRN #30 patch.td24 12/13/20 New Medications: Folic Acid 1 mg PO DAILY #30 tablet Atorvastatin Calcium [Lipitor] 40 mg PO BEDTIME #30 tab Nicotine [Nicoderm*] 21 mg TD DAILY PRN #30 patch.td24 PRN Reason: Anxiety Amlodipine [Norvasc*] 5 mg PO DAILY #30 tab Clopidogrel Bisulfate [Plavix*] 75 mg PO DAILY #30 tablet Patient Discharge Instructions: Follow up with PCP in 1 week. Patient presented with Left upper and lower extremity paresthesia with expressive aphasia. Patient with prior history of CVA 10 years ago to the right lateral thalamus. The patient was evaluated and found to have acute nonhemorrhagic infarct in the left lentiform nucleus extending into the deep periventricular white matter of the left frontal lobe. Patient symptoms resolved. Patient now back to baseline neurology was consulted. Patient has worked with physical therapy moving [place] und appropriately. No focal deficits noted at this time. Patient also has underlying carotid arterial disease bulb/internal carotid artery stenosis noted around 50-75%. At discharge patient will continue with aspirin 81 mg daily, Plavix 75 mg daily, Lipitor 40 mg daily, and folic acid mg daily. Neurology and I discussed with the patient about the plan of care including tobacco cessation. Compliance with medication will be enforced. Patient will follow up with neurology within 1 week to follow up this hospitalization. After 1 month neurology will consider discontinuing aspirin and continue with Plavix long- term. Compliance with medication addressed in detail. Education on CVA, tobacco cessation address in detail. Recommend to recheck lab-fasting lipid panel in 4-6 weeks to monitor his progress. Further adjustment in medication can be done by his PCP or neurology. Patient with hypertension. Blood pressure is elevated. Patient takes valsartan hydrochlorothiazide 320 mg/12.5 mg twice daily. Additional medication of Norvasc 5 mg daily added. Patient will need to maintain blood pressure around 160 systolic for the next week then will need better control. Further adjustment in his medication can be done by Neurology or his PCP. Goal Hypertension in the future will be 130/80. Education on hypertension provided. Patient appears to have chronic renal disease stage III. Renal function improved with hydration. Encourage oral intake. Future medications will need to be renally dose. Recommend to recheck lab-BMP in 1 week. Patient would benefit with nephrology evaluation as an outpatient to further evaluate. Current medications may need to be further adjusted by his PCP per renal function. Patient with tobacco abuse. Tobacco cessation addressed in detail. Will provide nicotine patch daily. Diet: AHA Activity: Ad jocelyn Followup: Juan M Gay MD [Primary Care Provider] - Time spent managing pt's care (in minutes): 55
[2020-12-13 14:08] VITALS: BP 177/77; TEMP 97.9
[2020-12-13 14:41] VITALS: O2SAT 95
[2020-12-14] MEDS ORDERED: AMLODIPINE 5 MG TAB PO SCH (09:00)
== END 2020-12-13 15:08 | disposition home or self-care (01) ==
LOC: ER 17:14 → ERHOLD 19:57 → 2ND 21:39
PROVIDERS: ADMIT Family Medicine; ATTEND Family Medicine
DX: I63.89 Other cerebral infarction (principal); R20.2 Paresthesia of skin; R47.01 Aphasia; Z86.73 Personal history of transient ischemic attack (TIA), and cerebral infarction without residual deficits; I12.9 Hypertensive chronic kidney disease with stage 1 through stage 4 chronic kidney disease, or unspecified chronic kidney disease; N18.30 Chronic kidney disease, stage 3 unspecified; Z20.822 Contact with and (suspected) exposure to COVID-19; F17.210 Nicotine dependence, cigarettes, uncomplicated
CPT/HCPCS: 96365; 96361; 85025 ×2; 80048 ×2; 36415; 83735; 85610; 80061; 82947; 85730; 84443; 84484; 84439; 70450; 71045; 93880; 70551; 92523; 92610; 97161; 99285; U0003; J1650; J7030 ×3; G0378

== ENCOUNTER 2021-01-24 09:51 | Emergency (ER) | payer OTHER ==
[2021-01-24 10:26] LABS: Basophils % 0.8 % (0-1.3); Hematocrit 36.7 % (39.6-49.0); Lymphocytes % 18.3 % (15.3-44.8); MPV 9.4 fL (7.6-11.3); RBC Red Blood Cell Count 4.19 M/uL (4.33-5.43)
[2021-01-24] MEDS ORDERED: MORPHINE 4 MG/ML SYR ONE (10:55)
[2021-01-24] MEDS ORDERED: ONDANSETRON 4 MG/2 ML VIAL ONE (10:55)
[2021-01-24] MEDS ORDERED: NA CHLORIDE 0.9% 1,000 ML ONE (10:56)
[2021-01-24 10:59] LABS: Albumin 3.9 g/dL (3.4-5.0); Bilirubin Direct 0.1 mg/dL (0-0.2); Bilirubin Total 0.4 mg/dL (0.2-1.0); Potassium 4.2 mmol/L (3.5-5.1); Protein, Total 8.3 g/dL (6.4-8.2)
--- NOTE | 2021-01-24 12:01 | RAD REPORT ---
EXAM DESCRIPTION: US - Abdomen Exam Limited - 01/24/2021 11:18 am CLINICAL HISTORY: r/o gb;Abd pain COMPARISON: No comparisons FINDINGS: At least 1 large stone 27 mm in diameter is identified. There is strong posterior acoustic shadowing created by this stone. Patient likely has additional smaller stones. There is a large amou nt of spillage filling the lumen. There is no wall thickening or pericholecystic fluid. No common duct stone or biliary tree dilatation identified. IMPRESSION: A 27 millimeter size gallstone is present in the patient likely has additional smaller s tones. Large amount of sludge is present filling the lumen of the gallbladder.
--- NOTE | 2021-01-24 12:07 | ER ---
Nurse's Notes [facility] Name: Latrell Ramires Age: 70 yrs Sex: Male : 1950 Arrival Date: 01/24/2021 Time: 09:54 Bed 8 Private MD: Juan R Robles C Diagnosis: Cholelithiasis;Upper abdominal pain, unspecified Presentation: 01/24 10:03 Chief complaint: Patient states: Abd pain with N/V for 12 days. Sent in by his PCP for hb eval. Coronavirus screen: Client denies travel out of the [place] in the last 14 days. At this time, the client does not indicate any symptoms associated with coronavirus-19. Ebola Screen: Patient denies travel to an Ebola-affected area in the 21 days before illness onset. Initial Sepsis Screen: Does the patient meet any 2 criteria? No. Patient's initial sepsis screen is negative. Does the patient have a suspected source of infection? Yes: Acute abdominal pain. Risk Assessment: Do you want to hurt yourself or someone else? Patient reports no desire to harm self or others. Onset of symptoms was January 15, 2021. 10:03 Method Of Arrival: Ambulatory hb 10:03 Acuity: ALPHONSE 3 hb Historical: - Allergies: 10:03 No Known Allergies; hb - PMHx: 10:03 Hypertension; stroke; hb - Immunization history:: Flu vaccine is not up to date. - Social history:: Smoking status: Patient/guardian denies using tobacco, Stopped _ months ago .5. Screenin:05 Abuse screen: Denies threats or abuse. Nutritional screening: No deficits noted. hb Tuberculosis screening: No symptoms or risk factors identified. 10:53 Fall Risk None identified. ph Assessment: 10:48 General: Appears in no apparent distress. comfortable, well groomed, Behavior is calm, ph cooperative, appropriate for age, Denies fever. Pain: Complains of pain in right upper quadrant Neuro: Level of Consciousness is awake, alert, obeys commands, Oriented to person, place, time, situation. Cardiovascular: Capillary refill < 3 seconds in bilateral fingers Patient's skin is warm and dry. Respiratory: Airway is patent Respiratory effort is even, unlabored. GI: Reports upper abdominal pain, constipation, nausea, vomiting, Patient currently denies bloody stool. Derm: Skin is intact, is healthy with good turgor, Skin is pink, warm \T\ dry. Musculoskeletal: Circulation, motion, and sensation intact. Range of motion: intact in all extremities. 12:00 Reassessment: Patient appears in no apparent distress at this time. Patient and/or ph family updated on plan of care and expected duration. Pain level reassessed. Patient is alert, oriented x 3, equal unlabored respirations, skin warm/dry/pink. Vital Signs: 10:03 BP 191 / 79; Pulse 55; Resp 17; Temp 98.0; Pulse Ox 100% ; Weight 99.79 kg; Height 6 hb ft. 2 in. (187.96 cm); Pain 7/10; 11:00 BP 188 / 79; Pulse 51; Resp 18; Pulse Ox 98% on R/A; ph 11:45 BP 216 / 81; Pulse 54; Resp 18; Pulse Ox 95% on R/A; ph 12:18 BP 190 / 107; Pulse 56; Resp 16; Pulse Ox 97% on R/A; ph 12:38 BP 187 / 94; Pulse 57; Resp 18; Temp 97.8; Pulse Ox 98% on R/A; ph 10:03 Body Mass Index 28.25 (99.79 kg, 187.96 cm) hb ED Course: 09:54 Patient arrived in ED. mr 09:55 Juan R Robles MD is Private Physician. mr 10:00 [facility] Carlin [facility]. jr8 10:00 Adolfo Gonzalez MD is Attending Physician. jr8 10:03 Arm band placed on Patient placed in an exam room, on a stretcher. hb 10:05 Triage completed. hb 10:05 Patient has correct armband on for positive identification. Bed in low position. Call hb light in reach. Side rails up X 1. Pulse ox on. NIBP on. Warm blanket given. 10:45 Inserted saline lock: 20 gauge in right antecubital area, using aseptic technique. ph Blood collected. 10:53 Raisa Frausto, URIAH is Primary Nurse. ph 11:18 US Abdomen Limited In Process Unspecified. EDMS 12:05 Reza Zavala MD is Referral Physician. jr8 12:37 No provider procedures requiring assistance completed. IV discontinued, intact, ph bleeding controlled, No redness/swelling at site. Pressure dressing applied. Administered Medications: 11:08 Drug: NS 0.9% 1000 ml Route: IV; Rate: 1 bolus; Site: right antecubital; sr5 12:00 Follow up: Response: No adverse reaction; IV Status: Completed infusion; IV Intake: ph 1000ml 11:10 Drug: Zofran (Ondansetron) 4 mg Route: IVP; Site: right antecubital; sr5 12:00 Follow up: Response: No adverse reaction; Nausea is decreased ph 11:12 Drug: morphine 4 mg Route: IVP; Site: right antecubital; sr5 11:30 Follow up: Response: No adverse reaction; Pain is decreased; RASS: Alert and Calm (0) ph 12:00 Drug: hydrALAZINE 10 mg Route: IV; Rate: calculated rate; Site: right antecubital; ph 12:39 Follow up: Response: No adverse reaction; Blood pressure is lowered; IV Status: ph Completed infusion 12:26 Drug: Demerol 25 mg Route: IVP; Site: right antecubital; ph 12:39 Follow up: Response: No adverse reaction; Pain is decreased; RASS: Alert and Calm (0) ph Intake: 12:00 IV: 1000ml; Total: 1000ml. ph Outcome: 12:05 Discharge ordered by MD. gee 12:38 Discharged to home ambulatory, with family. ph 12:38 Condition: good 12:38 Discharge instructions given to patient, Instructed on discharge instructions, follow up and referral plans. medication usage, Demonstrated understanding of instructions, follow-up care, medications, Prescriptions given X 2. 12:40 Patient left the ED. ph Signatures: Dispatcher [employer] ROYAND Latanya Upton ElvisHarvinder feliciano PA PA jr8 Raisa Frausto RN RN Felipa Ruiz RN RN Nate Mane RN RN sr5
--- NOTE | 2021-01-24 12:07 | EDPHYS ---
Physician Documentation [facility] Name: Latrell Ramires Age: 70 yrs Sex: Male : 1950 Arrival Date: 01/24/2021 Time: 09:54 Bed 8 Private MD: Juan R Robles C ED Physician Adolfo Gonzalez HPI: 01/24 10:22 This 70 yrs old Male presents to ER via Ambulatory with complaints of jr8 Abdominal Pain, Vomiting/Diarrhea. 10:22 The patient presents with abdominal pain in the right upper quadrant, Radiates to R jr8 flank. Onset: The symptoms/episode began/occurred 2 week(s) ago. The symptoms radiate to the right flank. Associated signs and symptoms: Pertinent positives: nausea and vomiting. Patient presents to ED after being sent by primary for eval for R sided abd pain. PMHx: stroke 1 month ago, ulcer, HTN. He started vomiting last night only food and denies blood or coffee ground color. Denies Diarrhea but reports constipation. Stool yesterday was normal in color. . Historical: - Allergies: 10:03 No Known Allergies; hb - PMHx: 10:03 Hypertension; stroke; hb - Immunization history:: Flu vaccine is not up to date. - Social history:: Smoking status: Patient/guardian denies using tobacco, Stopped _ months ago .5. ROS: 10:25 Cardiovascular: Negative for chest pain, palpitations, and edema, Respiratory: Negative jr8 for shortness of breath, cough, wheezing, and pleuritic chest pain, Back: Negative for injury and pain, Skin: Negative for injury, rash, and discoloration, Neuro: Negative for headache, weakness, numbness, tingling, and seizure. 10:25 Abdomen/GI: Positive for abdominal pain, nausea and vomiting, constipation. Exam: 10:25 Head/Face: Normocephalic, atraumatic. Chest/axilla: Normal chest wall appearance and jr8 motion. Nontender with no deformity. No lesions are appreciated. Cardiovascular: Regular rate and rhythm with a normal S1 and S2. No gallops, murmurs, or rubs. Normal PMI, no JVD. No pulse deficits. Respiratory: Lungs have equal breath sounds bilaterally, clear to auscultation and percussion. No rales, rhonchi or wheezes noted. No increased work of breathing, no retractions or nasal flaring. Back: No spinal tenderness. No costovertebral tenderness. Full range of motion. Skin: Warm, dry with normal turgor. Normal color with no rashes, no lesions, and no evidence of cellulitis. MS/ Extremity: Pulses equal, no cyanosis. Neurovascular intact. Full, normal range of motion. Neuro: Awake and alert, GCS 15, oriented to person, place, time, and situation. Cranial nerves II-XII grossly intact. Motor strength 5/5 in all extremities. Sensory grossly intact. Cerebellar exam normal. Normal gait. 10:25 Abdomen/GI: Inspection: obese Bowel sounds: normal, in all quadrants, Palpation: severe abdominal tenderness, in the right upper quadrant, involuntary guarding, is elicited in the right upper quadrant, Indicators: Romano's sign is positive. 10:25 : CVA tenderness, on the right. Vital Signs: 10:03 BP 191 / 79; Pulse 55; Resp 17; Temp 98.0; Pulse Ox 100% ; Weight 99.79 kg; Height 6 hb ft. 2 in. (187.96 cm); Pain 7/10; 11:00 BP 188 / 79; Pulse 51; Resp 18; Pulse Ox 98% on R/A; ph 11:45 BP 216 / 81; Pulse 54; Resp 18; Pulse Ox 95% on R/A; ph 12:18 BP 190 / 107; Pulse 56; Resp 16; Pulse Ox 97% on R/A; ph 12:38 BP 187 / 94; Pulse 57; Resp 18; Temp 97.8; Pulse Ox 98% on R/A; ph 10:03 Body Mass Index 28.25 (99.79 kg, 187.96 cm) hb MDM: 10:00 Patient medically screened. jr8 10:27 Data reviewed: vital signs, nurses notes, lab test result(s), radiologic studies. 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 Interpretation: normal. 12:02 Counseling: I had a detailed discussion with the patient and/or guardian regarding: the jr8 historical points, exam findings, and any diagnostic results supporting the discharge/admit diagnosis, lab results, radiology results, the need for outpatient follow up, a general surgeon, to return to the emergency department if symptoms worsen or persist or if there are any questions or concerns that arise at home. Response to treatment: the patient's symptoms have markedly improved after treatment. ED course: No acute abdomen. WBC normal. No signs of cholecystitis. No fever. BP decreasing. Will send home to f/u with GS . 01/24 10:00 Order name: Basic Metabolic Panel; Complete Time: 11:8 01/24 10:00 Order name: CBC with Diff; Complete Time: 10:34 8 01/24 10:00 Order name: Hepatic Function; Complete Time: :8 01/24 10:00 Order name: Lipase; Complete Time: :8 01/24 10:34 Order name: Urine Microscopic Only 01/24 10:00 Order name: IV Saline Lock; Complete Time: :57 8 01/24 10:00 Order name: Labs collected and sent; Complete Time: :57 8 01/24 10:34 Order name: US Abdomen Limited; Complete Time: 12:02 Administered Medications: 11:08 Drug: NS 0.9% 1000 ml Route: IV; Rate: 1 bolus; Site: right antecubital; sr5 12:00 Follow up: Response: No adverse reaction; IV Status: Completed infusion; IV Intake: ph 1000ml 11:10 Drug: Zofran (Ondansetron) 4 mg Route: IVP; Site: right antecubital; sr5 12:00 Follow up: Response: No adverse reaction; Nausea is decreased ph 11:12 Drug: morphine 4 mg Route: IVP; Site: right antecubital; sr5 11:30 Follow up: Response: No adverse reaction; Pain is decreased; RASS: Alert and Calm (0) ph 12:00 Drug: hydrALAZINE 10 mg Route: IV; Rate: calculated rate; Site: right antecubital; ph 12:39 Follow up: Response: No adverse reaction; Blood pressure is lowered; IV Status: ph Completed infusion 12:26 Drug: Demerol 25 mg Route: IVP; Site: right antecubital; ph 12:39 Follow up: Response: No adverse reaction; Pain is decreased; RASS: Alert and Calm (0) ph Disposition: 22:15 Co-signature as Attending Physician, Adolfo Gonzalez MD I agree with the assessment and kdr plan of care. Disposition: 01/24/21 12:05 Discharged to Home. Impression: Cholelithiasis, Upper abdominal pain, unspecified. - Condition is Stable. - Discharge Instructions: Abdominal Pain, Adult, Cholelithiasis. - Prescriptions for Tylenol- Codeine #3 300-30 mg Oral Tablet - take 2 tablets by ORAL route every 4-6 hours As needed; 20 tablet. Zofran 4 mg Oral Tablet - take 1 tablet by ORAL route every 12 hours As needed; 20 tablet. - Medication Reconciliation Form, Thank You Letter, Antibiotic Education, Prescription Opioid Use form. - Follow up: Reza Zavala MD; When: 2 - 3 days; Reason: Recheck today's complaints, Continuance of care, Re-evaluation by your physician. - Problem is new. - Symptoms have improved. Signatures: Dispatcher [employer] EDMS Adolfo Gonzalze MD MD [facility] Harvinder Carlin PA PA jr8 Raisa Frausto RN RN Felipa Ruiz RN RN Nate Mane RN RN sr5 Corrections: (The following items were deleted from the chart) 12:40 12:05 01/24/2021 12:05 Discharged to Home. Impression: Cholelithiasis; Upper abdominal ph pain, unspecified. Condition is Stable. Forms are Medication Reconciliation Form, Thank You Letter, Antibiotic Education, Prescription Opioid Use. Follow up: Reza Zavala; When: 2 - 3 days; Reason: Recheck today's complaints, Continuance of care, Re-evaluation by your physician. Problem is new. Symptoms have improved. jr8
[2021-01-24] MEDS ORDERED: HYDRALAZINE HCL 20 MG/ML VIAL ONE (12:12)
[2021-01-24] MEDS ORDERED: MEPERIDINE HCL 25 MG/ML SYR ONE (12:38)
[2021-01-24 12:56] VITALS: BP 187/94; TEMP 97.8; O2SAT 98
== END 2021-01-24 12:40 | disposition home or self-care (01) ==
LOC: ER 09:51
DX: K80.20 Calculus of gallbladder without cholecystitis without obstruction (principal); R10.11 Right upper quadrant pain; I10 Essential (primary) hypertension; Z86.73 Personal history of transient ischemic attack (TIA), and cerebral infarction without residual deficits; Z87.891 Personal history of nicotine dependence
CPT/HCPCS: 96365; 96361; 85025; 80048; 36415; 80076; 83690; 76705; 96375; 99284; J0360; J2175; J7030; J2405

== ENCOUNTER 2021-01-25 06:05 | Observation (INO) | payer OTHER ==
[2021-01-25 06:44] LABS: Absolute Lymphocytes (CBC) 1.7 K/uL (0.7-4.9); Basophils % 0.5 % (0-1.3); Hematocrit 34.2 % (39.6-49.0); Lymphocytes % 14.8 % (15.3-44.8); MPV 9.5 fL (7.6-11.3); RBC Red Blood Cell Count 3.93 M/uL (4.33-5.43)
[2021-01-25] MEDS ORDERED: NA CHLORIDE 0.9% 1,000 ML ONE (06:52)
[2021-01-25] MEDS ORDERED: FAMOTIDINE 20 MG/2 ML VIAL IV ONE (06:52)
[2021-01-25] MEDS ORDERED: ONDANSETRON 4 MG/2 ML VIAL ONE ×2 (06:52→12:44)
[2021-01-25] MEDS ORDERED: MORPHINE 2 MG/ML SYR ONE ×3 (06:52→08:11)
[2021-01-25 06:53] LABS: Protime INR 1.11
--- NOTE | 2021-01-25 06:58 | ER ---
Nurse's Notes [facility] Name: Latrell Ramires Age: 70 yrs Sex: Male : 1950 Arrival Date: 01/25/2021 Time: 06:09 Bed 19 Private MD: Diagnosis: Abdominal tenderness;Cholelithiasis Presentation: 01/25 06:19 Chief complaint: Patient states: he was seen here yesterday and diagnosed with bb cholelithiasis and sent home but the pain has gotten worse and is constant. Coronavirus screen: At this time, the client does not indicate any symptoms associated with coronavirus-19. Ebola Screen: No symptoms or risks identified at this time. Initial Sepsis Screen: Does the patient meet any 2 criteria? No. Patient's initial sepsis screen is negative. Does the patient have a suspected source of infection? No. Patient's initial sepsis screen is negative. Risk Assessment: Do you want to hurt yourself or someone else? Patient reports no desire to harm self or others. Onset of symptoms was January 25, 2021. 06:19 Method Of Arrival: Ambulatory bb 06:19 Acuity: ALPHONSE 3 bb Triage Assessment: 06:22 General: Appears uncomfortable, Behavior is cooperative, anxious. Pain: Complains of bb pain in right upper quadrant Pain currently is 10 out of 10 on a pain scale. Is continuous. Neuro: Level of Consciousness is awake, alert, obeys commands, Oriented to person, place, time, situation. Respiratory: Respiratory effort is unlabored. GI: Abdomen is distended, Reports upper abdominal pain. Derm: Skin is pink, warm \T\ dry. Musculoskeletal: Circulation, motion, and sensation intact. Historical: - Allergies: :31 No Known Allergies; bb - Home Meds: : Tylenol #3 Oral [Active]; bb - PMHx: 06: Hypertension; stroke; bb - Immunization history:: Adult Immunizations up to date. - Social history:: Smoking status: Patient/guardian denies using tobacco, quit smoking 2 weeks ago. Screenin:20 Abuse screen: Denies threats or abuse. Nutritional screening: No deficits noted. jb4 Tuberculosis screening: No symptoms or risk factors identified. Fall Risk None identified. Assessment: 06:20 General: Appears in no apparent distress. uncomfortable, Behavior is calm, cooperative, jb4 appropriate for age. Pain: Complains of pain in right upper quadrant Pain does not radiate. Pain currently is 10 out of 10 on a pain scale. Neuro: Level of Consciousness is awake, alert, obeys commands, Oriented to person, place, time, situation. Cardiovascular: Patient's skin is warm and dry. Respiratory: Airway is patent Respiratory effort is even, unlabored, Respiratory pattern is regular, symmetrical. GI: Abdomen is round non-distended, Reports upper abdominal pain. : No signs and/or symptoms were reported regarding the genitourinary system. EENT: No signs and/or symptoms were reported regarding the EENT system. Derm: Skin is intact, Skin is pink, warm \T\ dry. Musculoskeletal: Circulation, motion, and sensation intact. Range of motion: intact in all extremities. 06:29 Reassessment: pt's spouse states pt had consult with Dr Zavala yesterday. bb 07:17 Reassessment: Pt continues to have 10/10 pain. second dose of analgesia given. dm14 07:35 Reassessment: Urine specimen sent to lab. Reassessment: Returned from CT. dm14 08:01 Reassessment: Pain 8/10. Analgesia given as ordered. dm14 08:45 Reassessment: States RLQ pain now 4/10. dm14 09:29 Reassessment: Pt notified of admission to Room 220. Pt remains uncomfortable, Pain dm14 5-6/10. Vital Signs: 06:19 BP 193 / 70; Pulse 64; Resp 18 S; Temp 98(O); Pulse Ox 97% on R/A; Weight 99.79 kg (R); bb Height 6 ft. 2 in. (187.96 cm) (R); Pain 10/10; 07:00 BP 234 / 95; Pulse 74; Resp 20; Pulse Ox 97% ; dm14 07:40 BP 234 / 88; Pulse 67; Resp 20; Pulse Ox 96% ; dm14 08:15 BP 208 / 99; Pulse 60; Resp 18; Pulse Ox 96% ; dm14 08:45 BP 206 / 81; Pulse 67; Resp 18; Pulse Ox 96% ; dm14 09:01 BP 173 / 73; Pulse 71; Resp 18; Pulse Ox 96% ; dm14 09:29 BP 187 / 98; Pulse 70; Resp 18; Pulse Ox 97% ; dm14 06:19 Body Mass Index 28.25 (99.79 kg, 187.96 cm) bb ED Course: 06:09 Patient arrived in ED. bp1 06:12 Jimi Edwards MD is Attending Physician. richi 06:20 Patient has correct armband on for positive identification. Bed in low position. Call jb4 light in reach. Side rails up X 1. Pulse ox on. NIBP on. 06:20 Initial lab(s) drawn, by me, sent to lab. Inserted saline lock: 18 gauge in right jb4 antecubital area, using aseptic technique. Blood collected. 06:21 Triage completed. bb 06:22 Arm band placed on Patient placed in an exam room, on a stretcher, on pulse oximetry. bb 06:24 Yifan Dinero RN is Primary Nurse. jb4 06:57 Mauro Dumont DO is Hospitalizing Provider. richi 07:38 Urine Culture Sent. dm14 07:51 CORONAVIRUS Sent. dm14 08:45 No provider procedures requiring assistance completed. dm14 09:29 Report given to URIAH Aragon 2nd floor. dm14 09:29 Patient admitted, IV remains in place. dm14 Administered Medications: 06:35 Drug: Pepcid 20 mg Route: IVP; Site: right antecubital; jb4 08:00 Follow up: Response: No adverse reaction dm14 06:35 Drug: NS 0.9% 1000 ml Route: IV; Rate: 125 ml/hr; Site: right antecubital; jb4 06:36 Drug: Zofran (Ondansetron) 4 mg Route: IVP; Site: right antecubital; jb4 08:01 Follow up: Response: No adverse reaction dm14 06:38 Drug: morphine 2 mg Route: IVP; Site: right antecubital; jb4 07:15 Drug: morphine 2 mg Route: IVP; Site: right antecubital; dm14 08:00 Follow up: Response: No adverse reaction dm14 07:45 Drug: Zosyn 3.375 grams Route: IVPB; Infused Over: 60 mins; Site: right antecubital; dm14 07:59 Drug: morphine 2 mg Route: IVP; Site: right antecubital; dm14 08:42 Follow up: Response: No adverse reaction; Pain is unchanged, physician notified dm14 08:28 CANCELLED (Duplicate Order): Dilaudid 1 mg IVP once; RASS on ADMIN: Combtv4, Very jl7 Agttd3, Agttd2, Rstlss1, AlertClm0, Drwsy-1, Lt Sdtn-2, Mod Sdtn-3, Dp Sdtn-4, UnArsble-5 08:35 Drug: Dilaudid 1 mg Route: IVP; Site: right antecubital; dm14 08:43 Follow up: Response: No adverse reaction; Pain is decreased dm14 Outcome: 06:58 Decision to Hospitalize by Provider. richi 09:51 Admitted to Med/surg accompanied by tech, via wheelchair, room 220, Report called to [facility] Margo 09:51 Condition: stable 09:51 Discharge instructions given to patient, Instructed on the need for admit, Demonstrated understanding of instructions. 09:53 Patient left the ED. dm14 Signatures: Jimi Edwards MD MD cha Ballard, Brenda RN RN Yifan Hendrix RN RN jb4 Enma Jo Dianne, RN RN dm14 Wilder Weiner RN jl7 Corrections: (The following items were deleted from the chart) 06:31 06:22 Allergies: No Known Allergies; jaiden hwang
--- NOTE | 2021-01-25 06:59 | EDPHYS ---
Physician Documentation [facility] Name: Latrell Ramires Age: 70 yrs Sex: Male : 1950 Arrival Date: 01/25/2021 Time: 06:09 Bed 19 Private MD: ED Physician Jimi Edwards HPI: 01/25 06:44 This 70 yrs old Male presents to ER via Ambulatory with complaints of Flank richi Pain, Gallbladder. 06:44 The patient complains of pain in the right mid back and right low back. richi Historical: - Allergies: :31 No Known Allergies; bb - Home Meds: :31 Tylenol #3 Oral [Active]; bb - PMHx: 06:22 Hypertension; stroke; bb - Immunization history:: Adult Immunizations up to date. - Social history:: Smoking status: Patient/guardian denies using tobacco, quit smoking 2 weeks ago. ROS: 06:44 Constitutional: Negative for fever, chills, and weight loss, Eyes: Negative for injury, richi pain, redness, and discharge, ENT: Negative for injury, pain, and discharge, Neck: Negative for injury, pain, and swelling, Cardiovascular: Negative for chest pain, palpitations, and edema, Respiratory: Negative for shortness of breath, cough, wheezing, and pleuritic chest pain, Back: Negative for injury and pain, : Negative for injury, bleeding, discharge, and swelling, MS/Extremity: Negative for injury and deformity, Skin: Negative for injury, rash, and discoloration, Neuro: Negative for headache, weakness, numbness, tingling, and seizure, Psych: Negative for depression, anxiety, suicide ideation, homicidal ideation, and hallucinations, Allergy/Immunology: Negative for hives, rash, and allergies, Endocrine: Negative for neck swelling, polydipsia, polyuria, polyphagia, and marked weight changes, Hematologic/Lymphatic: Negative for swollen nodes, abnormal bleeding, and unusual bruising. 06:44 Abdomen/GI: Positive for abdominal pain, of the epigastric area and right upper quadrant. Exam: 06:44 Constitutional: This is a well developed, well nourished patient who is awake, alert, richi and in no acute distress. Head/Face: Normocephalic, atraumatic. Eyes: Pupils equal round and reactive to light, extra-ocular motions intact. Lids and lashes normal. Conjunctiva and sclera are non-icteric and not injected. Cornea within normal limits. Periorbital areas with no swelling, redness, or edema. ENT: Nares patent. No nasal discharge, no septal abnormalities noted. Tympanic membranes are normal and external auditory canals are clear. Oropharynx with no redness, swelling, or masses, exudates, or evidence of obstruction, uvula midline. Mucous membranes moist. Neck: Trachea midline, no thyromegaly or masses palpated, and no cervical lymphadenopathy. Supple, full range of motion without nuchal rigidity, or vertebral point tenderness. No Meningismus. Chest/axilla: Normal chest wall appearance and motion. Nontender with no deformity. No lesions are appreciated. Cardiovascular: Regular rate and rhythm with a normal S1 and S2. No gallops, murmurs, or rubs. Normal PMI, no JVD. No pulse deficits. Respiratory: Lungs have equal breath sounds bilaterally, clear to auscultation and percussion. No rales, rhonchi or wheezes noted. No increased work of breathing, no retractions or nasal flaring. Back: No spinal tenderness. No costovertebral tenderness. Full range of motion. Male : Normal genitalia with no discharge or lesions. Skin: Warm, dry with normal turgor. Normal color with no rashes, no lesions, and no evidence of cellulitis. MS/ Extremity: Pulses equal, no cyanosis. Neurovascular intact. Full, normal range of motion. Neuro: Awake and alert, GCS 15, oriented to person, place, time, and situation. Cranial nerves II-XII grossly intact. Motor strength 5/5 in all extremities. Sensory grossly intact. Cerebellar exam normal. Normal gait. Psych: Awake, alert, with orientation to person, place and time. Behavior, mood, and affect are within normal limits. 06:44 Abdomen/GI: Inspection: distension, Bowel sounds: active, Palpation: moderate abdominal tenderness, in the epigastric area and right upper quadrant, Liver: no appreciated palpable abnormalities, Hernia: not appreciated. 06:44 Musculoskeletal/extremity: DVT Exam: No signs of deep vein thrombosis. no pain, no swelling, no tenderness, negative Homans' sign noted on exam, no appreciated bluish discoloration, no erythema, no increased warmth. Vital Signs: 06:19 BP 193 / 70; Pulse 64; Resp 18 S; Temp 98(O); Pulse Ox 97% on R/A; Weight 99.79 kg (R); bb Height 6 ft. 2 in. (187.96 cm) (R); Pain 10/10; 07:00 BP 234 / 95; Pulse 74; Resp 20; Pulse Ox 97% ; dm14 07:40 BP 234 / 88; Pulse 67; Resp 20; Pulse Ox 96% ; dm14 08:15 BP 208 / 99; Pulse 60; Resp 18; Pulse Ox 96% ; dm14 08:45 BP 206 / 81; Pulse 67; Resp 18; Pulse Ox 96% ; dm14 09:01 BP 173 / 73; Pulse 71; Resp 18; Pulse Ox 96% ; dm14 09:29 BP 187 / 98; Pulse 70; Resp 18; Pulse Ox 97% ; dm14 06:19 Body Mass Index 28.25 (99.79 kg, 187.96 cm) bb MDM: 06:12 Patient medically screened. richi 06:45 Differential diagnosis: UTI, diverticulitis, pancreatitis, cholecystitis, richi Cholelithiasis, diverticulitis, gastritis, gastroesophageal reflux disease, Mesenteric ischemia or infarction, non-specific abd pain, pancreatitis, Peptic Ulcer Disease. Data reviewed: vital signs, nurses notes. 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 Test interpretation: by ED physician or midlevel provider: ECG, plain radiologic studies. Counseling: I had a detailed discussion with the patient and/or guardian regarding: the historical points, exam findings, and any diagnostic results supporting the discharge/admit diagnosis, lab results, radiology results, the need for further work-up and treatment in the hospital. 08:48 ED course: D/w / Jamaal regarding possible lung mass which was communicated to Dr. bryant Dumont. 01/25 06:28 Order name: Basic Metabolic Panel 01/25 06:28 Order name: CBC with Diff 01/25 06:28 Order name: LFT's 01/25 06:28 Order name: Magnesium 01/25 06:28 Order name: NT PRO-BNP 01/25 06:28 Order name: PT-INR richi 01/25 06:28 Order name: Troponin (emerg Dept Use Only) 01/25 06:28 Order name: Lipase [facility] 01/25 06:28 Order name: Urine Culture [facility] 01/25 06:46 Order name: CBC with Automated Diff; Complete Time: 07:10 EDMS 01/25 06:56 Order name: Protime (+INR); Complete Time: 07:10 EDMS 01/25 07:10 Order name: Basic Metabolic Panel; Complete Time: 07:10 EDMS 01/25 07:10 Order name: Liver (Hepatic) Function; Complete Time: 07:15 EDMS 01/25 07:10 Order name: Troponin (Emerg Dept Use Only); Complete Time: 07:15 EDMS 01/25 06:28 Order name: XRAY Chest (1 view) [facility] 01/25 06:43 Order name: CT Abd/Pelvis - PO Contrast Only [facility] 01/25 07:10 Order name: NT PRO-BNP; Complete Time: 07:15 EDMS 01/25 07:10 Order name: Magnesium; Complete Time: 07:15 EDMS 01/25 07:10 Order name: Lipase; Complete Time: 07:15 EDMS 01/25 07:17 Order name: COVID-19 : Document "Date of Symptom Onset" if Symptomatic. [facility] 01/25 07:39 Order name: Urine Dipstick--Ancillary (enter results) 01/25 07:40 Order name: CORONAVIRUS EDWA 01/25 07:52 Order name: CT EDWA 01/25 08:01 Order name: Urine Dipstick-Ancillary EDWA 01/25 08:19 Order name: SARS-COV-2 RT PCR EDMS 01/25 08:48 Order name: RAD EDWA 01/25 06:28 Order name: EKG; Complete Time: 06:29 [facility] 01/25 06:28 Order name: Cardiac monitoring [facility] 01/25 06:28 Order name: IV Saline Lock; Complete Time: 06:30 richi 01/25 06:28 Order name: Labs collected and sent; Complete Time: 06:30 richi 01/25 06:28 Order name: O2 Per Protocol; Complete Time: 06:30 richi 01/25 06:28 Order name: O2 Sat Monitoring; Complete Time: 06:30 richi 01/25 06:28 Order name: Urine Dipstick-Ancillary (obtain specimen); Complete Time: 07:38 [facility] Administered Medications: 06:35 Drug: Pepcid 20 mg Route: IVP; Site: right antecubital; jb4 08:00 Follow up: Response: No adverse reaction dm14 06:35 Drug: NS 0.9% 1000 ml Route: IV; Rate: 125 ml/hr; Site: right antecubital; jb4 06:36 Drug: Zofran (Ondansetron) 4 mg Route: IVP; Site: right antecubital; jb4 08:01 Follow up: Response: No adverse reaction dm14 06:38 Drug: morphine 2 mg Route: IVP; Site: right antecubital; jb4 07:15 Drug: morphine 2 mg Route: IVP; Site: right antecubital; dm14 08:00 Follow up: Response: No adverse reaction dm14 07:45 Drug: Zosyn 3.375 grams Route: IVPB; Infused Over: 60 mins; Site: right antecubital; dm14 07:59 Drug: morphine 2 mg Route: IVP; Site: right antecubital; dm14 08:42 Follow up: Response: No adverse reaction; Pain is unchanged, physician notified dm14 08:28 CANCELLED (Duplicate Order): Dilaudid 1 mg IVP once; RASS on ADMIN: Combtv4, Very jl7 Agttd3, Agttd2, Rstlss1, AlertClm0, Drwsy-1, Lt Sdtn-2, Mod Sdtn-3, Dp Sdtn-4, UnArsble-5 08:35 Drug: Dilaudid 1 mg Route: IVP; Site: right antecubital; dm14 08:43 Follow up: Response: No adverse reaction; Pain is decreased dm14 Disposition: 01/25/21 06:58 Hospitalization ordered by Mauro Dumont for Observation. Preliminary diagnosis are Abdominal tenderness, Cholelithiasis. - Bed requested for Telemetry/MedSurg (observation). - Status is Observation. dm14 - Condition is Fair. - Problem is new. - Symptoms have improved. Signatures: Dispatcher [employer] EDJimi Navarro MD MD cha Rittger, Kevin, MD MD kdr Ballard, Brenda RN RN bb Yifan Dinero RN RN jb4 Wilder Weiner RN RN jl7 Lainez, Pina eb McInroy, Angelique, RN RN dm14 Corrections: (The following items were deleted from the chart) 06:30 06:28 EKG - Nurse/Tech ordered. richi jb4 06:31 06:22 Allergies: No Known Allergies; bb bb 08:25 06:58 Hospitalization Ordered by Mauro Dumont DO for Observation. Preliminary eb diagnosis is Abdominal tenderness; Cholelithiasis. Bed requested for Telemetry/MedSurg (observation). Status is Observation. Condition is Fair. Problem is new. Symptoms have improved. richi 08:28 08:28 Dilaudid 1 mg IVP once; RASS on ADMIN: Combtv4, Very Agttd3, Agttd2, Rstlss1, jl7 AlertClm0, Drwsy-1, Lt Sdtn-2, Mod Sdtn-3, Dp Sdtn-4, UnArsble-5 ordered. jl7 09:53 08:25 01/25/2021 06:58 Hospitalization Ordered by Mauro Dumont DO for Observation. dm14 Preliminary diagnosis is Abdominal tenderness; Cholelithiasis. Bed requested for Telemetry/MedSurg (observation). Status is Observation. Condition is Fair. Problem is new. Symptoms have improved. eb
[2021-01-25 07:10] LABS: ALT/SGPT 49 U/L (12-78); AST/SGOT 56 U/L (15-37); Albumin 3.6 g/dL (3.4-5.0); Alkaline Phosphatase 134 U/L (45-117); BUN Blood Urea Nitrogen 16 mg/dL (7-18); Bicarbonate 25 mmol/L (21-32); Bilirubin Direct 0.2 mg/dL (0-0.2); Bilirubin Total 0.6 mg/dL (0.2-1.0); Glucose Level 131 mg/dL (74-106); Lipase 108 U/L (73-393); Magnesium 2.2 mg/dL (1.8-2.4); NT PRO-BNP 751 pg/mL (<125); Potassium 3.8 mmol/L (3.5-5.1); Protein, Total 7.9 g/dL (6.4-8.2); Sodium Level 139 mmol/L (136-145); Troponin (Emerg Dept Use Only) < 0.02 ng/mL (0.0-0.045)
[2021-01-25] MEDS ORDERED: PIPER/TAZO/NS 3.375gm 3.375 GM/100 ML BAG ONE (07:29)
--- NOTE | 2021-01-25 07:51 | RAD REPORT ---
EXAM DESCRIPTION: CT - Abdomen Pelvis Wo Contrast - 01/25/2021 7:37 am CLINICAL HISTORY: ABD PAIN History of recent cholelithiasis diagnosis with worsening pain since prior assessment COMPARISON: CT ABD PELVIS W WO CONTRAST dated 03/05/2009 TECHNIQUE: Axial [address] imaging of the abdomen and pelvis was performed without IV contrast. No IV contrast was given because of allergy, abnormal renal function, patient refusal or physician re quest. Oral contrast was administered. All CT scans are performed using dose optimization technique as appropriate and may include automated exposure control or mA/KV adjustment according to patient size. FINDINGS: Scarring or atelectasis changes present in each posterior gutter. Trace amount of pleural fluid or pleural thickening seen. This was not present on the far remote 2008 CT study. The liver, spleen and pancreas show no suspicious findings on non-contrast imaging. Gallbladder is ab normal. Approximately 2.5 centimeter low-density stone is present. There is hyperdense attenuation of the lumen. Prior day ultrasound shows at least 1 large stone and extensive sludge to be present. No pericholecystic fluid. No biliary tree dilatation. Trace amount of edema seen adjacent to the wall of the gallbladder. No obstructing calculus and no hydronephrosis present. There is fullness or mild dilatation of upper pole calyx on the left. This is similar to comparison. No significant adrenal finding. Patient does have a 2.4 centimeter left adrenal mass that has not changed since 2008. Isodense renal masses and py elonephritis cannot be excluded in the absence of IV contrast. The urinary bladder is without signifi cant finding. No prostate gland or seminal vesicle significant finding. Contrast is present in the esophagus. Patient has a minimal hiatal hernia. Contrast remains in the st omach. Nieves of the gastric antrum and distal body are thickened probably peristalsis artifact. Patie nt may have gastro paresis. The amount of oral contrast present is less than normally administered an d patient have not ingested the full volume of contrast. No dilated small bowel loop. Stool volume is [id number]. No acute colon finding. Diverticulosis is minimal. No free air, free fluid, pneumatosis or focal inflammatory stranding. No hernia, mass or bulky lymp hadenopathy. No suspicious bony findings. Infrarenal abdominal aorta dilates to 3.2 cm. No displaced calcification. This is larger than 2009. A ortic assessment is limited in the absence of contrast. IMPRESSION: Cholelithiasis and extensive gallbladder sludge pattern. There is questionable edema in the fat adjacent to the gallbladder. Correlation is needed with clinical findings of cholecystitis. No biliary tree abnormality seen. Remainder the examination is without acute or emergent finding. Infrarenal aorta dilated at 3.2 cm increased slightly from 2008. Full assessment is limited is the absence of IV contrast.
--- NOTE | 2021-01-25 08:00 | P.HP ---
Certification for Inpatient Patient admitted to: Observation With expected LOS: <2 Midnights Patient will require the following post-hospital care: None Practitioner: I am a practitioner with admitting privileges, knowledge of patient current condition, hospital course, and medical plan of care. Services: Services provided to patient in accordance with Admission requirements found in Title 42 Section 412.3 of the Code of Federal Regulations Patient History Date of Service: 01/25/21 Primary Care Provider: Dr. Gay Reason for admission: RUQ Ab pain, nausea History of Present Illness: 70 yo CM with history of HTN, Prior CVA, Hyperlipidemia, Tobacco abuse presented with worsening right upper quadrant abdominal pain. He was seen yesterday in the ER and found to have gallstones. A 27 mm stone noted with other small stones/sludge noted. No common bile duct dilation was noted. He was discharged from the ER and went to seen by Surgery-Dr. Zavala later that evening. Patient was given antibiotic therapy for possible future cholecystectomy. Overnite the patient continue to have right upper quadrant abdominal pain. Pain was severe. He was associated with some nausea. No vomiting noted. Patient denies any fever, chills. No chest pain or shortness of breath. He came back to the ER for further evaluation. In the ER patient was evaluated. White count 11.7, hemoglobin 11.4. Platelet count 319. Sodium 139, potassium 3.8. Being of 16, creatinine 1.56 with a GFR 44. Glucose 131. AST 56. ALT 43. Total bilirubin 0.6. Troponin unremarkable. Lipase unremarkable. CT scan pending. Prior ultrasound done yesterday reviewed. 27 mm gallstone noted in the gallbladder. Other small stones noted with sludge. No common bile duct dilation noted. Patient was admitted for further evaluation and treatment. Patient given IV antibiotic therapy and pain medication. When I saw the patient ER, pain still present. Patient to receive IV pain medication. Blood pressure elevated. I was able to get in contact with surgery-Dr. Zavala. He is out of town. On-call surgeon Dr. Arizmendi was consulted. He has agreed to see the patient. This was discussed in detail with the patient who is familiar with him and agrees with plan. Patient was seen in November for CVA. Patient without weakness, slurred speech, or deficit. Patient has been compliant with his medication. Allergies No Known Allergies Allergy (Verified 12/12/20 22:20) Home medications list reviewed: Yes Home Medications: Omeprazole [Prilosec] 20 mg PO BID 11/14/15 Valsartan/Hydrochlorothiazide [Valsartan-Hctz 320-12.5 mg Tab] 1 each PO BID 11/14/15 Aspirin [Aspirin EC 81 MG] 1 tab PO DAILY 12/12/20 Amlodipine [Norvasc*] 5 mg PO DAILY #30 tab 12/13/20 Atorvastatin Calcium [Lipitor] 40 mg PO BEDTIME #30 tab 12/13/20 Clopidogrel Bisulfate [Plavix*] 75 mg PO DAILY #30 tablet 12/13/20 Folic Acid 1 mg PO DAILY #30 tablet 12/13/20 Nicotine [Nicoderm*] 21 mg TD DAILY PRN #30 patch.td24 12/13/20 - Past Medical/Surgical History Diabetic: No -: Hypertension -: History of CVA -: GERD -: Hyperlipidemia -: Tobacco abuse -: Hernia repair -: prostate surgery Psychosocial/ Personal History: Retired, lives with - Family History Mother -: Hypertension Father -: Hypertension - Social History Smoking Status: Former smoker Alcohol use: No CD- Drugs: No Caffeine use: Yes Place of Residence: Home Review of Systems General: As per HPI Eyes: Unremarkable ENT: Unremarkable Respiratory: Unremarkable Cardiovascular: Unremarkable Gastrointestinal: Nausea, Abdominal Pain, As per HPI Genitourinary: Unremarkable Musculoskeletal: Unremarkable Integumentary: Unremarkable Neurological: Unremarkable Lymphatics: Unremarkable Physical Examination - Physical Exam General: Alert, Oriented x3, Cooperative, Mild distress HEENT: Atraumatic, Mucous membr. moist/pink Neck: Supple Respiratory: Clear to auscultation bilaterally, Normal air movement Cardiovascular: Normal pulses, Regular rate/rhythm Gastrointestinal: Normal bowel sounds, No masses, No rebound, No guarding, Tenderness (Pain to the right upper quadrant) Neurological: Normal speech, Normal strength at 5/5 x4 extr, Normal tone, Normal affect - Studies Laboratory Data (last 24 hrs) 01/25/21 06:20: PT 12.8 H, INR 1.11 01/25/21 06:20: WBC 11.70 H, Hgb 11.4 L, Hct 34.2 L, Plt Count 319 01/25/21 06:20: Sodium 139, Potassium 3.8, BUN 16, Creatinine 1.56 H, Glucose 131 H, Magnesium 2.2, Total Bilirubin 0.6, AST 56 H, ALT 49, Alkaline Phosphatase 134 H, Lipase 108 Assessment and Plan - Plan Impression: Right upper quadrant abdominal pain with nausea secondary to acute cholecystitis with cholelithiasis Hypertension History of CVA Hyperlipidemia History of tobacco abuse Plan: Right upper quadrant abdominal pain with nausea secondary to acute cholecystitis with cholelithiasis: Patient will be admitted for further evaluation and treatment. Case discussed with surgery-Dr. Arizmendi. Will keep the patient NPO. Will continue with IV Zosyn and IV pain medication. Patient is for moderate risk clinically but cleared for surgery. Anticipate surgery later today for cholecystectomy. Blood cultures obtained. Continue to monitor closely. Will provide medication for blood pressure. Hypertension: Will provide IV medication at this time. Restart home medication of valsartan and Norvasc once he is able to tolerate diet. History of CVA: Hold aspirin and Plavix at this time. Patient on SCD in preparation for surgery. Hyperlipidemia: Will continue with Lipitor once patient is able to take oral intake. History of tobacco abuse: Patient reports he no longer smokes. He quit about a month ago. He was smoking about a pack and half a day. Discharge Plan: Home Plan to discharge in: 48 Hours - Advance Directives Does patient have a Living Will: Yes Does patient have a Durable POA for Healthcare: No - Code Status/Comfort Care Code Status Assessed: Yes (Patient is full code) Time Spent Managing Pts Care (In Minutes): 55
[2021-01-25 08:01] LABS: Urine Blood 2+ (NEG); Urine Glucose NEGATIVE (NEG); Urine Protein 3+ (NEG); Urine pH 6.5 (5.0-7.0)
[2021-01-25] MEDS ORDERED: HYDROMORPHONE HCL 1 MG/ML INJ ONE (08:47)
--- NOTE | 2021-01-25 08:47 | RAD REPORT ---
EXAM DESCRIPTION: RAD - Chest Single View - 01/25/2021 6:55 am CLINICAL HISTORY: COUGH, cholelithiasis, abdominal and lower chest pain on the right COMPARISON: November 2020 TECHNIQUE: AP portable chest image was obtained 01/25/2021 6:55 am . FINDINGS: Lung volumes are slightly reduced accentuating the baseline interstitial pattern. No perip heral mass or consolidation. Increased density in the medial right apex is believed to be the affects of vascular and soft tissue summation. Film artifact limits this region as well. Pericardial fat pads are present. Heart and vasculature are normal. No measurable pleural effusion an d no pneumothorax. No acute bony abnormality seen. No acute aortic findings suspected. Chest film finding discussed with Dr. Gonzalez 8:44 a.m. IMPRESSION: No acute cardiopulmonary process. Focal density medial right apex is believed to be technical and soft tissue summation artifact. Howev er, follow-up imaging is recommended to exclude mass. If the patient is unable to tolerate upright two view imaging, CT chest study could be performed.
[2021-01-25] MEDS: NA CHLORIDE 0.9% 1,000 ML IV SCH ×2 (09:31→22:51)
[2021-01-25] MEDS ORDERED: ONDANSETRON 4 MG/2 ML VIAL IV PRN (09:31)
[2021-01-25] MEDS ORDERED: ACETAMINOPHEN 500 MG TAB PO PRN (09:31)
[2021-01-25] MEDS ORDERED: HYDRALAZINE HCL 20 MG/ML VIAL IV PRN (09:31)
[2021-01-25] MEDS ORDERED: HYDROMORPHONE HCL 1 MG/ML INJ IV PRN (09:31)
[2021-01-25] MEDS ORDERED: ACETAMINOPHEN 650MG/RECT SUPP PR PRN (09:31)
[2021-01-25] MEDS ORDERED: SODIUM CHLORIDE 0.9% 10ML INJ IV PRN (09:31)
[2021-01-25] MEDS ORDERED: PIPER/TAZO/NS 3.375gm 3.375 GM/100 ML BAG IVPB SCH (10:00)
[2021-01-25] MEDS: PANTOPRAZOLE 40 MG INJ IVP SCH (10:34)
[2021-01-25 11:14] VITALS: BMI 28.2
[2021-01-25] MEDS ORDERED: METOPROLOL TARTRATE 5 MG/5 ML INJ IV PRN (11:39)
[2021-01-25] MEDS ORDERED: Ringers Lactate 1,000 ML IV ONE ×2 (12:38→14:08)
[2021-01-25] MEDS ORDERED: propofoL 200 MG/20 ML VIAL IV ONE (12:43)
[2021-01-25] MEDS ORDERED: KETOROLAC 30 MG/ML INJ ONE (12:44)
[2021-01-25] MEDS ORDERED: MIDAZOLAM HCL 2 MG/2 ML INJ ONE (12:44)
[2021-01-25] MEDS ORDERED: ROCURONIUM 50 MG/5 ML VIAL IV ONE (12:44)
[2021-01-25] MEDS ORDERED: dexAMETHasone 10 MG/ML VIAL ONE (12:44)
[2021-01-25] MEDS ORDERED: LIDOCAINE 2% MPF 5 ML VIAL ONE (12:44)
[2021-01-25] MEDS ORDERED: FENTANYL CITR 100 MCG/2 ML ONE (12:44)
[2021-01-25] MEDS ORDERED: EPHEDRINE SULF 50 MG/ML VIAL ONE (13:30)
--- NOTE | 2021-01-25 13:37 | P.BOP ---
Preoperative diagnosis: intractable RUQ pain, acute cholecystitis, sympt cholelithiasis Postoperative diagnosis: same, umbilical hernia Primary procedure: 1. Laparoscopic cholecystectomy Secondary procedure: 2. open repair of umbilical hernia Professional Services Manager: Marbella Ya (SAND BUFFER) Estimated blood loss: <10cc Specimen: gb Findings: as above Anesthesia: General Complications: None Drain(s): DANIELLE drain Transferred to: Recovery Room Condition: Good
[2021-01-25] MEDS ORDERED: GLYCOPYRROLATE 0.2 MG/ML SYR ONE (13:51)
[2021-01-25] MEDS ORDERED: NEOSTIGMINE 1 MG/ML -5 ML ONE (13:52)
[2021-01-25] MEDS ORDERED: MORPHINE 2 MG/ML SYR IV PRN (13:58)
[2021-01-25] MEDS ORDERED: HYDROCODONE/APAP 5/325 MG TAB PO PRN (13:58)
[2021-01-25] MEDS: PIPER/TAZO/NS 3.375gm 3.375 GM/100 ML BAG IVPB SCH (17:00)
--- NOTE | 2021-01-25 18:04 | CON ---
Date of Consultation: 01/25/2021 Diagnosis: Acute cholecystitis, symptomatic cholelithiasis. History Of Present Illness: This is a case of a 70-year-old patient who comes to the ER today compla ining of right upper quadrant abdominal pain, nausea, and vomiting. He was in the ER yesterday and h e was sent home with same complaint. Visited Dr. Zavala, local surgeon. He was going to do the grisel ester, but overnight gets worse and the patient failed outpatient treatment. The patient came early t his morning to the ER. Dr. Zavala is out of town and he contacted me and Dr. Dumont to see if I can do the gallbladder today since patient failed outpatient treatment. The patient denies any dysuria, hematuria, hematochezia, melena. Denies any recent traveling out of the country. Denies any family member sick at home. The patient has a CVA in the past. Allergies: NONE. Past Medical History: Includes CVA, hypertension, GERD. Past Surgical History: Includes prostate surgery, inguinal hernia surgery. Social History: He smokes, but he does not drink alcohol. He was counseled about smoking cessation. Family History: Hypertension. Review of Systems: The patient has nausea, abdominal pain, intractable right upper quadrant epigastric with bloating. T en points otherwise unremarkable. Physical Examination: General: The patient is awake, alert, oriented x3. HEENT: Pupils are equal and reactive, anicteric. Neck: Supple. Chest: Clear. Abdomen: Right upper quadrant tenderness with Romano sign positive and guarding. Rectal: Deferred. Genitalia: Deferred. Extremities: Good capillary refill. Neuro: Even though the patient has history of CVA, this patient has no major residual. Laboratory Data: WBC count is 11.7, hemoglobin 11.4, total bilirubin of 0.6, alkaline phos is 134, l ipase is 108. Ultrasound done yesterday shows gallstones. Imaging: CAT scan done today once again showed the same with distended gallbladder. Assessment: A 70-year-old patient with symptomatic cholelithiasis, acute cholecystitis. Benefits, a lternatives, and risks of laparoscopic possible open cholecystectomy fully explained, which include, but not limited to infection, bleeding, damage to adjacent structures, anesthesia complication, cara docholithiasis, bile leak, pancreatitis, [place], and even . He also understands this may not reliev e symptoms. He might need more than one surgical intervention. We discussed the case with the patie nt, Dr. Zavala, Dr. Dumont. They understand the risks of this patient, but even though they are try ing to do this as an outpatient, they could not. The patient failed outpatient treatment and cholecy stectomy will be done today. They understood the risk and the patient signed a consent. ISH/JOSEFINA Voice ID: [id number] Report ID: [id number]
[2021-01-25] MEDS ORDERED: ATORVASTATIN 40 MG TAB PO SCH (21:00)
[2021-01-25] MEDS: FOLIC ACID 1 MG TABLET PO SCH (21:08)
[2021-01-25] MEDS: AMLODIPINE 5 MG TAB PO SCH (21:09)
[2021-01-25] MEDS: VALSARTAN 160 MG TAB PO SCH (21:11)
--- NOTE | 2021-01-26 00:20 | OP ---
Date of Procedure: 01/25/2021 Surgeon: Rigoberto Arizmendi MD Preoperative Diagnoses: Acute cholecystitis, intractable right upper quadrant abdominal pain, sympto matic cholelithiasis, history of stroke. Postoperative Diagnoses: Acute cholecystitis, intractable right upper quadrant abdominal pain, sympt omatic cholelithiasis, history of stroke, umbilical hernia. Procedure: Laparoscopic cholecystectomy, open repair of umbilical hernia. Anesthesia: General plus local. Drains: DANIELLE #10. Indications: This is the case of a 70-year-old patient who comes to us with intractable abdominal pa in, came to the ER yesterday. Then went to doctor's office, still not getting better, and he failed outpatient treatment. Comes once again to the ER today, diagnosed with acute cholecystitis, Romano s ign positive, , and patient were offered laparoscopic possible open cholecystectomy with be nefits, alternatives, and risks including, but not limited to infection, bleeding, damage to adjacent structures, anesthesia complication, [place] and even . He also understands this may not relieve sy mptoms. He might need more than one surgical intervention. He understood, signed a consent. Procedure In Detail: The patient was brought to the operating room, placed in supine position. Anes thesia was done without complication. Abdominal area was prepped and draped in usual sterile fashion . Marcaine 0.5% was injected for local anesthetic followed by sharp incision of the skin in the infr aumbilical region. When we got there, we noticed the patient to have an umbilical hernia. So we rem rick the hernia sac, extended incision. Placed Vicryl #1 inside the fascia. Stephany trocar was caref ully introduced. No bleeding was obtained. When we took a look at that area, the patient has multip le omental adhesions to the gallbladder. When we removed it, we noticed a distended edematous gallbl adder with some areas that were trying to get cyanotic, probably impending gangrene, and we did not r emove this. So in order for me to handle the gallbladder, I have to put in a needle under direct vis ualization and aspirate the gallbladder. Needle was removed under direct visualization. After that, I put a grasper in the fundus of the gallbladder and another grasper in the infundibulum retracting the gallbladder in the inferolateral fashion exposing the triangle of Calot obtaining critical view. Cystic duct and cystic artery were clearly isolated, freed circumferentially, and a connection betwe en those and the gallbladder were clearly identified. I proceeded to ligate those by using at least 3 clips proximal, 1 clip distal, ligation in middle. Same was done with the cystic artery. No bile leak. No bleeding. The gallbladder was removed from liver using Bovie cauterizer and removed from a bdominal cavity using EndoCatch through the umbilical incision. The area was inspected once again. Due to the infection and inflammation in that area, we believed it is wiser to leave a DANIELLE drain in th at region that was just exiting through one of the trocar site and secured in place with 3-0 nylon. At that moment, I proceeded to remove the trocars under direct vision, deflated pneumoperitoneum, charlie sed the fascia with #1 Vicryl and closed umbilical hernia with #1 Vicryl. Irrigated subcutaneous tis reema, closed with 3-0 chromic and skin with sterling. Sponge count and instrument counts were correct. A DANIELLE was connected to bulb suction. The patient was sent to recovery in stable condition. ISH/JOSEFINA Voice ID: [id number] Report ID: [id number]
[2021-01-26] MEDS: PIPER/TAZO/NS 3.375gm 3.375 GM/100 ML BAG IVPB SCH ×2 (01:04→09:00)
[2021-01-26 05:25] LABS: Absolute Lymphocytes (CBC) 1.5 K/uL (0.7-4.9); Basophils % 0.2 % (0-1.3); Hematocrit 28.7 % (39.6-49.0); Lymphocytes % 9.6 % (15.3-44.8); MPV 9.4 fL (7.6-11.3); RBC Red Blood Cell Count 3.29 M/uL (4.33-5.43)
[2021-01-26 06:06] LABS: Albumin 2.8 g/dL (3.4-5.0); Bilirubin Total 0.5 mg/dL (0.2-1.0); Magnesium 2.1 mg/dL (1.8-2.4); Potassium 4.1 mmol/L (3.5-5.1); Protein, Total 6.2 g/dL (6.4-8.2)
[2021-01-26] MEDS: NA CHLORIDE 0.9% 1,000 ML IV SCH (09:21)
[2021-01-26] MEDS: FOLIC ACID 1 MG TABLET PO SCH (09:23)
[2021-01-26] MEDS: AMLODIPINE 5 MG TAB PO SCH (09:23)
[2021-01-26] MEDS: VALSARTAN 160 MG TAB PO SCH (09:23)
[2021-01-26] MEDS: PANTOPRAZOLE 40 MG INJ IVP SCH (09:23)
--- NOTE | 2021-01-26 10:34 | P.DS ---
Admission Date: 01/25/21 Discharge Date: 01/26/21 Primary Care Provider: Dr. Gay Disposition: ROUTINE DISCHARGE Discharge Condition: GOOD Reason for Admission: RUQ Ab pain, nausea Consultations: Surgery-Dr. Arizmendi Procedures: COVID: Negative CT scan: FINDINGS: Scarring or atelectasis changes present in each posterior gutter. Trace amount of pleural fluid or pleural thickening seen. This was not present on the far remote 2008 CT study. The liver, spleen and pancreas show no suspicious findings on non-contrast imaging. Gallbladder is abnormal. Approximately 2.5 centimeter low-density stone is present. There is hyperdense attenuation of the lumen. Prior day ultrasound shows at least 1 large stone and extensive sludge to be present. No pericholecystic fluid. No biliary tree dilatation. Trace amount of edema seen adjacent to the wall of the gallbladder. No obstructing calculus and no hydronephrosis present. There is fullness or mild dilatation of upper pole calyx on the left. This is similar to comparison. No significant adrenal finding. Patient does have a 2.4 centimeter left adrenal mass that has not changed since 2008. Isodense renal masses and pyelonephritis cannot be excluded in the absence of IV contrast. The urinary bladder is without significant finding. No prostate gland or seminal vesicle significant finding. Contrast is present in the esophagus. Patient has a minimal hiatal hernia. Contrast remains in the stomach. Nieves of the gastric antrum and distal body are thickened probably peristalsis artifact. Patient may have gastroparesis. The amount of oral contrast present is less than normally administered and patient have not ingested the full volume of contrast. No dilated small bowel loop. Stool volume is [id number]. No acute colon finding. Diverticulosis is minimal. No free air, free fluid, pneumatosis or focal inflammatory stranding. No hernia, mass or bulky lymphadenopathy. No suspicious bony findings. Infrarenal abdominal aorta dilates to 3.2 cm. No displaced calcification. This is larger than 2009. Aortic assessment is limited in the absence of contrast. IMPRESSION: Cholelithiasis and extensive gallbladder sludge pattern. There is questionable edema in the fat adjacent to the gallbladder. Correlation is needed with clinical findings of cholecystitis. No biliary tree abnormality seen. Remainder the examination is without acute or emergent finding. Infrarenal aorta dilated at 3.2 cm increased slightly from 2008. Surgery: Date of Procedure: 01/25/2021 Surgeon: Rigoberto Arizmendi MD Preoperative Diagnoses: Acute cholecystitis, intractable right upper quadrant abdominal pain, symptomatic cholelithiasis, history of stroke. Postoperative Diagnoses: Acute cholecystitis, intractable right upper quadrant abdominal pain, symptomatic cholelithiasis, history of stroke, umbilical hernia. Procedure: Laparoscopic cholecystectomy, open repair of umbilical hernia. Anesthesia: General plus local. Medical Problem List: Right upper quadrant abdominal pain with nausea secondary to acute cholecystitis with cholelithiasis status post laparoscopic cholecystectomy with open repair of umbilical hernia Hypertension History of CVA Hyperlipidemia Chronic renal disease stage III History of tobacco abuse Brief History of Present Illness: 70 yo CM with history of HTN, Prior CVA, Hyperlipidemia, Tobacco abuse presented with worsening right upper quadrant abdominal pain. He was seen yesterday in the ER and found to have gallstones. A 27 mm stone noted with other small stones/sludge noted. No common bile duct dilation was noted. He was discharged from the ER and went to seen by Surgery-Dr. Zavala later that evening. Patient was given antibiotic therapy for possible future cholecystectomy. Overnite the patient continue to have right upper quadrant abdominal pain. Pain was severe. He was associated with some nausea. No vomiting noted. Patient denies any fever, chills. No chest pain or shortness of breath. He came back to the ER for further evaluation. In the ER patient was evaluated. White count 11.7, hemoglobin 11.4. Platelet count 319. Sodium 139, potassium 3.8. Being of 16, creatinine 1.56 with a GFR 44. Glucose 131. AST 56. ALT 43. Total bilirubin 0.6. Troponin unremarkable. Lipase unremarkable. CT scan pending. Prior ultrasound done yesterday reviewed. 27 mm gallstone noted in the gallbladder. Other small stones noted with sludge. No common bile duct dilation noted. Patient was admitted for further evaluation and treatment. Patient given IV antibiotic therapy and pain medication. When I saw the patient ER, pain still present. Patient to receive IV pain medication. Blood pressure elevated. I was able to get in contact with surgery-Dr. Zavala. He is out of town. On-call surgeon Dr. Arizmendi was consulted. He has agreed to see the patient. This was discussed in detail with the patient who is familiar with him and agrees with plan. Patient was seen in November for CVA. Patient without weakness, slurred speech, or deficit. Patient has been compliant with his medication. Hospital Course: Patient presented with Right upper quadrant abdominal pain with nausea secondary to acute cholecystitis with cholelithiasis. Patient was evaluated by surgery. Surgical intervention was recommended. Patient had laparoscopic cholecystectomy with open repair of umbilical hernia. Patient has done well post operatively. Drain to the RUQ remains in place. Patient tolerating diet. At discharge patient will continue with Augmentin 250 mg one pill twice daily for 7 days and Tylenol #3 one pill BID as needed for pain. No heavy lifting, pushing or pulling recommended. Patient will continue to monitor drain and measure appropriately. Instructions will be provided. Patient will follow up with surgery on Thursday for removal of DANIELLE tube and follow up this hospitalization. Patient with hypertension. Medications restarted. Blood pressure stable. At discharge patient will continue with aspirin 81 mg daily, Norvasc 10 mg daily, and valsartan 320 mg daily. Recommend to maintain blood pressure less 130/80. Further adjustment can be done by his PCP. Recommend follow up with PCP in 1 week to follow up this hospitalization and continue his care. Patient with history of CVA and hyperlipidemia. Patient recently on aspirin and Plavix for recent CVA. Patient was not able to tolerate Plavix. At discharge patient will continue with aspirin 81 mg daily, folic acid 1 mg daily and Lipitor 40 mg daily. Recommend to follow up with neurology next week to follow up recent hospitalization and to continue his care. Patient will need also follow up to refill medications. Patient with chronic renal disease stage III. This appears stable. Recommend no further use of nonsteroidal anti-inflammatories. Future medications would to be renally dose. Recommend follow up with PCP to further monitor. Recommend to recheck lab-BMP in 1 week to monitor stability. Patient would benefit with nephrology evaluation as an outpatient. Patient with history of tobacco abuse. Patient no longer smokes. Continue with cessation. Vital Signs/Physical Exam: Temp Pulse Resp BP Pulse Ox 97.6 F 52 18 128/60 94 01/26/21 08:00 01/26/21 09:23 01/26/21 08:00 01/26/21 09:23 01/26/21 08:00 General: Alert, In no apparent distress, Oriented x3, Cooperative HEENT: Atraumatic Neck: Supple Respiratory: Clear to auscultation bilaterally, Normal air movement Cardiovascular: Normal pulses, Regular rate/rhythm Gastrointestinal: Normal bowel sounds, No ascites, No tenderness, No masses, No rebound, No guarding, Other (No more significant pain noted. Drain in place.) Integumentary: No tenderness/swelling, No erythema, No warmth, No cyanosis Neurological: Normal speech, Normal strength at 5/5 x4 extr, Normal tone, Normal affect Laboratory Data at Discharge: WBC 15.30 K/uL (4.3-10.9) H D 01/26/21 05:00 Hgb 9.5 g/dL (13.6-17.9) L 01/26/21 05:00 Hct 28.7 % (39.6-49.0) L D 01/26/21 05:00 Plt Count 260 K/uL (152-406) 01/26/21 05:00 PT 12.8 SECONDS (9.5-12.5) H 01/25/21 06:20 INR 1.11 01/25/21 06:20 Sodium 139 mmol/L (136-145) 01/26/21 05:00 Potassium 4.1 mmol/L (3.5-5.1) 01/26/21 05:00 BUN 25 mg/dL (7-18) H 01/26/21 05:00 Creatinine 2.17 mg/dL (0.55-1.3) H 01/26/21 05:00 Glucose 125 mg/dL (74-106) H 01/26/21 05:00 Magnesium 2.1 mg/dL (1.8-2.4) 01/26/21 05:00 Total Bilirubin 0.5 mg/dL (0.2-1.0) 01/26/21 05:00 AST 47 U/L (15-37) H 01/26/21 05:00 ALT 42 U/L (12-78) 01/26/21 05:00 Alkaline Phosphatase 97 U/L (45-117) 01/26/21 05:00 Lipase 108 U/L (73-393) 01/25/21 06:20 Home Medications: Omeprazole [Prilosec] 20 mg PO BID 11/14/15 Aspirin [Aspirin EC 81 MG] 1 tab PO DAILY 12/12/20 Amlodipine [Norvasc*] 10 mg PO DAILY 01/25/21 Valsartan 320 mg PO DAILY 01/25/21 Amoxicillin/Potassium Clav [Augmentin 500-125 Tablet] 0.5 each PO BID #14 tablet 01/26/21 Atorvastatin Calcium [Lipitor] 40 mg PO BEDTIME #30 tab 01/26/21 Codeine/APAP [Tylenol W/Codeine #3 tab] 1 tab PO BID PRN #10 tab 01/26/21 Folic Acid 1 mg PO DAILY #90 tablet 01/26/21 New Medications: Amoxicillin/Potassium Clav [Augmentin 500-125 Tablet] 0.5 each PO BID #14 tablet Folic Acid 1 mg PO DAILY #90 tablet Atorvastatin Calcium [Lipitor] 40 mg PO BEDTIME #30 tab Codeine/APAP [Tylenol W/Codeine #3 tab] 1 tab PO BID PRN #10 tab PRN Reason: Pain Scale 5-7 (Moderate) Physician Discharge Instructions: Patient presented with Right upper quadrant abdominal pain with nausea secondary to acute cholecystitis with cholelithiasis. Patient was evaluated by surgery. Surgical intervention was recommended. Patient had laparoscopic cholecystectomy with open repair of umbilical hernia. Patient has done well post operatively. Drain to the RUQ remains in place. Patient tolerating diet. At discharge patient will continue with Augmentin 250 mg one pill twice daily for 7 days and Tylenol #3 one pill BID as needed for pain. No heavy lifting, pushing or pulling recommended. Patient will continue to monitor drain and measure appropriately. Instructions will be provided. Patient will follow up with surgery on Thursday for removal of DANIELLE tube and follow up this hospitalization. Patient with hypertension. Medications restarted. Blood pressure stable. At discharge patient will continue with aspirin 81 mg daily, Norvasc 10 mg daily, and valsartan 320 mg daily. Recommend to maintain blood pressure less 130/80. Further adjustment can be done by his PCP. Recommend follow up with PCP in 1 week to follow up this hospitalization and continue his care. Patient with history of CVA and hyperlipidemia. Patient recently on aspirin and Plavix for recent CVA. Patient was not able to tolerate Plavix. At discharge patient will continue with aspirin 81 mg daily, folic acid 1 mg daily and Lipitor 40 mg daily. Recommend to follow up with neurology next week to follow up recent hospitalization and to continue his care. Patient will need also follow up to refill medications. Patient with chronic renal disease stage III. This appears stable. Recommend no further use of nonsteroidal anti-inflammatories. Future medications would to be renally dose. Recommend follow up with PCP to further monitor. Recommend to recheck lab-BMP in 1 week to monitor stability. Patient would benefit with nephrology evaluation as an outpatient. Patient with history of tobacco abuse. Patient no longer smokes. Continue with cessation. Diet: AHA Activity: Ad jocelyn Followup: Juan M Gay MD [Primary Care Provider] - Time spent managing pt's care (in minutes): 55
[2021-01-26 11:38] LABS: Ferritin 53.9 ng/mL (26-388)
[2021-01-26 12:42] VITALS: BP 142/64; TEMP 98.4
[2021-01-26 12:46] VITALS: O2SAT 94
== END 2021-01-26 15:25 | disposition home or self-care (01) ==
LOC: ER 06:05 → ERHOLD 07:30 → 2ND 09:27
PROVIDERS: ADMIT Family Medicine; ATTEND Family Medicine
PROC: 0WQF0ZZ Repair Abdominal Wall, Open Approach (ICD-10-PCS; 2021-01-25)
PROC: 0FT44ZZ Resection of Gallbladder, Percutaneous Endoscopic Approach (ICD-10-PCS; principal; 2021-01-25 13:00)
DX: K80.12 Calculus of gallbladder with acute and chronic cholecystitis without obstruction (principal); K42.9 Umbilical hernia without obstruction or gangrene; Z20.822 Contact with and (suspected) exposure to COVID-19; I12.9 Hypertensive chronic kidney disease with stage 1 through stage 4 chronic kidney disease, or unspecified chronic kidney disease; N18.30 Chronic kidney disease, stage 3 unspecified; Z86.73 Personal history of transient ischemic attack (TIA), and cerebral infarction without residual deficits; E78.5 Hyperlipidemia, unspecified; Z87.891 Personal history of nicotine dependence; K21.9 Gastro-esophageal reflux disease without esophagitis
CPT/HCPCS: 87040 ×2; 85025 ×2; 87086; 80048; 36415; 83735 ×2; 85610; 80076; 88304; 81003; 84484; 82728; 82607; 83690; 83540; 80053; 83880; 84466; 74176; 71045; 94010 ×2; 96375; 96374; 99285; 47562; 49585; U0003; J0360; J2704; C9113 ×2; J2250; J3010; J2543; J1100; J2270 ×3; J1170 ×2; J2710; G0378 ×4; J7120 ×2; J7030 ×2; J2405 ×3; 87088

== ENCOUNTER 2022-07-23 11:14 | Day surgery (SDC) | payer OTHER ==
[2022-07-22 16:47] LABS: SARS-CoV-2 Antigen Rapid Res Negative (Negative)
[~2022-07-23 11:14] MED LIST: BENZOCAINE SPRAY 57 GM BTL MM SCH
[2022-07-23] MEDS ORDERED: Ringers Lactate 1,000 ML IV ONE (11:43)
[2022-07-23] MEDS ORDERED: propofoL 200 MG/20 ML VIAL IV ONE (12:54)
[2022-07-23] MEDS ORDERED: LIDOCAINE 1% MPF 5 ML VIAL ONE (12:54)
--- NOTE | 2022-07-23 13:55 | ENDO RPT ---
[address], [address] COLONOSCOPY PROCEDURE REPORT EXAM DATE: 07/23/2022 PATIENT NAME: Latrell Ramires MR #: [id number] BIRTHDATE: 1950 ATTENDING: Rui Banks Dr STATUS: outpatient HEALTHCARE CONSULTANT: Margo Jose RN, Katharina FORBES, and Nnamdi Guardado CST INDICATIONS: The patient is a 71 yr old Male here for a colonoscopy due to iron deficiency anemia, change in bowel habits, and constipation PROCEDURE PERFORMED: Colonoscopy MEDICATIONS: Per Anesthesia. ESTIMATED BLOOD LOSS: None CONSENT: The patient understands the risks and benefits of the procedure and understands that these risks include, but are not limited to: sedation, allergic reaction, infection, perforation and/or bleeding. Alternative means of evaluation and treatment include, among others: physical exam, x-rays, and/or surgical intervention. The patient elects to proceed with this endoscopic procedure. DESCRIPTION OF PROCEDURE: During intra-op preparation period all mechanical medical equipment was checked for proper function. Hand hygiene and appropriate measures for infection prevention was taken. Procedure, possible complications, alternatives including, but not limited to possibility of bleeding, perforation, tear, infection, sepsis, need for surgery, need for blood transfusion, were explained to the patient. After the risks, benefits and alternatives of the procedure were thoroughly explained, Informed consent was verified, confirmed and timeout was successfully executed by the treatment team. The patient was placed in the left lateral position. A digital rectal exam was performed and revealed no abnormalities of the rectum. After appropriate level of anesthesia, the scope was passed. The [id number] ([id number]) and [id number] ([id number]) endoscope was introduced through the anus and advanced to the terminal ileum which was intubated for a short distance. The quality of the prep was poor. The instrument was then slowly withdrawn as the colon was fully examined. Scope withdrawal time was 9 minutes. COLON FINDINGS: Small internal hemorrhoids were found. Retroflexed views revealed small hemorrhoids. The scope was then completely withdrawn from the patient and the procedure terminated. ADVERSE EVENTS: There were no complications. IMPRESSIONS: 1. Small internal hemorrhoids 2. Intubation to terminal ileum RECOMMENDATIONS: 1. yearly hemoccult starting in 4 years 2. fiber rich diet RECALL: Return in 10 year(s) for Colonoscopy. Rui Banks Dr eSigned: Rui Banks Dr 07/23/2022 1:55 PM cc: Juan M Gay CPT CODES: ICD9 CODES: PATIENT NAME: Latrell Ramires MR#: [id number]
--- NOTE | 2022-07-23 14:07 | ENDO RPT ---
[address], [address] EGD WITH DILATION PROCEDURE REPORT EXAM DATE: 07/23/2022 PATIENT NAME: Latrell Ramires MR#: [id number] BIRTHDATE: 1950 ATTENDING: Rui Banks Dr STATUS: outpatient TELEPHONE COIN BOX COLLECTOR: Margo Jose RN, Katharina FORBES, and Nnamdi Guardado CST INDICATIONS: The patient is a 71 yr old Male here for an EGD with dilation due to iron deficiency anemia, GERD, dysphagia, nausea, and weight loss PROCEDURE PERFORMED: EGD with biopsy and EGD with dilatation over guidewire MEDICATIONS: Per Anesthesia. TOPICAL ANESTHETIC: none CONSENT: The patient understands the risks and benefits of the procedure and understands that these risks include, but are not limited to: sedation, allergic reaction, infection, perforation and/or bleeding. Alternative means of evaluation and treatment include, among others: physical exam, x-rays, and/or surgical intervention. The patient elects to proceed with this endoscopic procedure. DESCRIPTION OF PROCEDURE: During intra-op preparation period all mechanical medical equipment was checked for proper function. Hand hygiene and appropriate measures for infection prevention was taken. After the risks, benefits and alternatives of the procedure were thoroughly explained, Informed consent was verified, confirmed and timeout was successfully executed by the treatment team. The patient was anesthetized with topical anesthesia and the EG-[id number] ([id number]) endoscope was introduced through the mouth and advanced to the third portion of the duodenum. The instrument was slowly withdrawn as the mucosa was fully examined. LA class C esophagitis was found in the lower esophagus. 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 Multiple biopsies were obtained and sent to pathology. A moderate sized hiatal hernia was found Moderate Atrophic gastritis was found in the body of the stomach. Multiple biopsies were obtained and sent to pathology. Few 3-6 mm sessile polyps were found in the body of the stomach. With jumbo forceps, a biopsy was obtained and sent to pathology. rule out eosinophilic esophagitis in the distal esophagus. DILATOR: SIZE(S): RESISTANCE: HEME: APPEARANCE: Dilator: Savary over guidewire Size(s): 14,15 mm Resistance: minimal Heme: none Appearance: adequate COMMENT: Retroflexed views revealed a moderate sized hiatal hernia. ADVERSE EVENTS: There were no complications. IMPRESSIONS: 1. LA class C esophagitis in the lower esophagus 2. 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 Moderate sized hiatal hernia 5. Moderate atrophic gastritis in the body of the stomach, s/p biopsies 6. Few 3-6 mm sessile polyps in the body of the stomach, s/p biopsy RECOMMENDATIONS: 1. await biopsy results 2. acid suppression therapy REPEAT EXAM: Rui Banks Dr eSigned: Rui Banks Dr 07/23/2022 2:06 PM cc: Juan M Gay M.D. CPT CODES: ICD9 CODES: PATIENT NAME: Latrell Ramires MR#: [id number]
[2022-07-23 14:09] VITALS: O2SAT 96
[2022-07-23 14:23] VITALS: BP 120/54; TEMP 98.3
--- NOTE | 2022-07-23 19:15 | RAD REPORT ---
EXAM DESCRIPTION: RAD - Small Bowel Series - 07/23/2022 7:01 pm CLINICAL HISTORY: Abdominal pain/ COMPARISON: None. FINDINGS: Contrast enters the colon by approximately 2 hours and 30 minutes The mucosal folds of the small bowel appear normal. No permanent filling defects, obstructing or constricting lesions are seen. The small bowel caliber is normal. IMPRESSION: Unremarkable small bowel series.
== END 2022-07-23 14:35 | disposition home or self-care (01) ==
LOC: OR 11:14
PROVIDERS: ATTEND Internal Medicine Gastroenterology
PROC: 0DB88ZX Excision of Small Intestine, Via Natural or Artificial Opening Endoscopic, Diagnostic (ICD-10-PCS; 2022-07-23)
PROC: 0DB68ZX Excision of Stomach, Via Natural or Artificial Opening Endoscopic, Diagnostic (ICD-10-PCS; 2022-07-23)
PROC: 0DJD8ZZ Inspection of Lower Intestinal Tract, Via Natural or Artificial Opening Endoscopic (ICD-10-PCS; 2022-07-23)
PROC: 0D758ZZ Dilation of Esophagus, Via Natural or Artificial Opening Endoscopic (ICD-10-PCS; principal; 2022-07-23 12:30)
PROC: 0DB58ZX Excision of Esophagus, Via Natural or Artificial Opening Endoscopic, Diagnostic (ICD-10-PCS; 2022-07-23 12:30)
DX: K59.00 Constipation, unspecified (principal); R63.4 Abnormal weight loss; R11.0 Nausea; K21.9 Gastro-esophageal reflux disease without esophagitis; R13.10 Dysphagia, unspecified; D50.9 Iron deficiency anemia, unspecified; Z20.822 Contact with and (suspected) exposure to COVID-19; N18.30 Chronic kidney disease, stage 3 unspecified; Z86.73 Personal history of transient ischemic attack (TIA), and cerebral infarction without residual deficits; K29.80 Duodenitis without bleeding; K29.50 Unspecified chronic gastritis without bleeding; K31.9 Disease of stomach and duodenum, unspecified; K20.90 Esophagitis, unspecified without bleeding; K64.4 Residual hemorrhoidal skin tags; K64.8 Other hemorrhoids
CPT/HCPCS: 36415; 88312; 88313; 88305; 74250; 87811; 43248; 43239; 45378; J2704; J7120; C1769; J2001

== ENCOUNTER 2022-10-28 08:15 | Day surgery (SDC) | payer OTHER ==
[2022-10-28] MEDS ORDERED: NA CHLORIDE 0.9% 500 ML ONE (08:53)
[2022-10-28 09:21] VITALS: O2SAT 100; BMI 23.8
[2022-10-28 13:28] VITALS: BP 137/51; TEMP 99
[2022-10-28 15:22] LABS: Hematocrit 21.9 % (39.6-49.0)
== END 2022-10-28 15:15 | disposition home or self-care (01) ==
LOC: DS 08:15
PROVIDERS: ATTEND Internal Medicine Hematology & Oncology
DX: D62 Acute posthemorrhagic anemia (principal); C34.11 Malignant neoplasm of upper lobe, right bronchus or lung; K92.2 Gastrointestinal hemorrhage, unspecified; D50.9 Iron deficiency anemia, unspecified; D63.1 Anemia in chronic kidney disease; E03.8 Other specified hypothyroidism
CPT/HCPCS: 36415; 36430; 85014; 85018; 86850; 86900; 86901; J7050; P9016

== ENCOUNTER 2023-01-08 07:12 | Day surgery (SDC) | payer OTHER ==
[2023-01-08] MEDS ORDERED: NA CHLORIDE 0.9% 500 ML ONE (07:40)
[2023-01-08 08:21] VITALS: BMI 24.3
[2023-01-08 14:14] VITALS: BP 137/59; TEMP 98.9; O2SAT 100
[2023-01-08 14:18] LABS: Hematocrit 25.5 % (39.6-49.0)
== END 2023-01-08 14:10 | disposition home or self-care (01) ==
LOC: DS 07:12
PROVIDERS: ATTEND Internal Medicine Hematology & Oncology
DX: D50.9 Iron deficiency anemia, unspecified (principal); D63.1 Anemia in chronic kidney disease; E03.8 Other specified hypothyroidism; N18.9 Chronic kidney disease, unspecified; K92.2 Gastrointestinal hemorrhage, unspecified
CPT/HCPCS: 36415; 86900; 86901; 85018; 85014; 36430; P9016 ×2; J7050

== ENCOUNTER 2023-02-18 06:30 | Day surgery (SDC) | payer OTHER ==
[2023-02-16 10:26] LABS: Absolute Lymphocytes (CBC) 0.9 K/uL (0.7-4.9); Hematocrit 25.5 % (39.6-49.0); Lymphocytes % 14.7 % (15.3-44.8); MCV 88.3 fL (80-100); MPV 7.9 fL (7.6-11.3); RBC Red Blood Cell Count 2.89 M/uL (4.33-5.43)
[2023-02-16 10:29] LABS: Protime INR 1.06
[2023-02-16 10:52] LABS: Potassium 4.3 mEq/L (3.5-5.1)
--- NOTE | 2023-02-16 12:31 | RAD REPORT ---
EXAM DESCRIPTION: Amarjit Bullard And Lat (2 Views)02/16/2023 10:24 am CLINICAL HISTORY: Preop for abdominal angiogram COMPARISON: November 2019. FINDINGS: Right paratracheal opacity is without obvious change Lungs appear clear of acute infiltrate. Heart is normal size new
--- NOTE | 2023-02-16 17:26 | EKG ---
Test Date: 2023-02-16 Test Time: 10:05:53 [employer]: EAN MEASUREMENT RESULTS: Intervals: Rate: 46 RI: 196 QRSD: 80 QT: 458 QTc: 400 [place]: P: 62 RI: 196 QRS: 46 T: 74 INTERPRETIVE STATEMENTS: Marked sinus bradycardia Abnormal ECG Compared to ECG 12/12/2020 17:53:44 No significant changes Electronically Signed On 02-16-23 17:25:53 CDT by Emery Ibarra
[2023-02-18] MEDS ORDERED: NA CHLORIDE 0.9% 500 ML ONE (06:47)
[2023-02-18] MEDS ORDERED: HEPA 1000U/500MLS 2,000 UNIT/1,000 ML BAG IV ONE (06:49)
[2023-02-18] MEDS ORDERED: MIDAZOLAM HCL 2 MG/2 ML INJ ONE ×2 (06:49→07:37)
[2023-02-18] MEDS ORDERED: LIDOCAINE 1% 20 ML MDV ONE (06:49)
[2023-02-18] MEDS ORDERED: FENTANYL CITR 100 MCG/2 ML ONE (06:49)
[2023-02-18] MEDS ORDERED: HEPARIN 10,000 UNIT/10 ML VIAL IV ONE (06:50)
[2023-02-18] MEDS ORDERED: HEPARIN 5000 UNIT/ML 1 ML VIAL ONE (06:50)
[2023-02-18] MEDS ORDERED: ATROPINE SULF 1 MG/10 ML SYR IV ONE (06:51)
[2023-02-18] MEDS ORDERED: NITROGLYCERIN/D5W 25 MG/250 ML BTL IV ONE (06:52)
[2023-02-18] MEDS ORDERED: VERAPAMIL HCL 10 MG/4 ML VIAL IV ONE (06:52)
[2023-02-18] MEDS ORDERED: NITROGLYCERIN 100 MCG/ML SYR (for cath lab use only) IV ONE (06:52)
[2023-02-18 06:58] VITALS: TEMP 97.2
[2023-02-18 10:08] VITALS: O2SAT 100
[2023-02-18 11:12] VITALS: BP 136/53
--- NOTE | 2023-02-18 20:18 | OP ---
Date of Procedure: 02/18/2023 Surgeon: HAYDER TO Procedure Performed: Peripheral angiogram with runoff. Indication: Peripheral vascular disease. Access: Right radial artery 6-Greek closed with TR band. Complications: None. Bleeding: Less than 10 mL. Anesthesia: Total sedation time was 20 minutes. Used fentanyl and Versed. Description Of Procedure: After risks, benefits, and alternatives were explained, the patient agreed to procedure and signed informed consent. The patient was brought into the cardiac catheterization laboratory, prepped and draped in the usual sterile fashion. Then, I accessed right radial artery us ing pediatric micropuncture kit, placed 6-Greek Slender sheath and took a long 4-Greek pigtail cath eter over a J-wire and placed to the distal aorta and performed distal aortogram and runoff. I then removed the catheter and sheath and placed TR band with good hemostasis. Findings: 1.Distal aorta. There was an aneurysm, but no stenosis. 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 2.Right common iliac artery has about 40% stenosis. Then, the right femoral artery appears to be no rmal, right SFA has proximal 30% to 40% and then distal 80% to 90% and has patent profunda, the termi nal vessel below the knee are with mild diffuse 30% stenosis, but has flow all the way to his toes. 3.The left common iliac artery has 20% to 30%. The left common femoral appears to be normal, the le ft SFA proximal 40%, mid 50% and mid to distal 80% stenosis, left profunda is patent, the below the k nee vessels triple-vessel runoff is with diffuse mild 30% stenosis. Conclusion: Severe bilateral SFA stenosis. We will plan to do intervention on them, one vessel at t he time due to chronic kidney disease. They will be staged. SR/MODL Voice ID: [id number] Report ID: [id number]
== END 2023-02-18 11:49 | disposition home or self-care (01) ==
LOC: PRE 06:30 → CCL 11:49
PROVIDERS: ATTEND Internal Medicine
DX: I70.223 Atherosclerosis of native arteries of extremities with rest pain, bilateral legs (principal); I25.10 Atherosclerotic heart disease of native coronary artery without angina pectoris; I65.23 Occlusion and stenosis of bilateral carotid arteries; I12.9 Hypertensive chronic kidney disease with stage 1 through stage 4 chronic kidney disease, or unspecified chronic kidney disease; N18.30 Chronic kidney disease, stage 3 unspecified; I51.7 Cardiomegaly; Z87.891 Personal history of nicotine dependence; Z79.82 Long term (current) use of aspirin; Z79.899 Other long term (current) drug therapy; Z82.49 Family history of ischemic heart disease and other diseases of the circulatory system
CPT/HCPCS: 36200; 36415; 71046; 75630; 80048; 85025; 85610; 85730; 93005; C1893; J0461; J1644; J2001; J2250; J3010; J7040; Q9966